=== PATIENT | male | born 1945 | race African-American/Black ===

== ENCOUNTER 2018-09-04 21:31 | Emergency (ER) | payer MEDICAID, MEDICARE ==
[~2018-09-04] VITALS: Ht 172.7 cm; Wt 181.8 kg
[2018-09-04] MEDS ORDERED: SODIUM CHLORIDE 0.9% 1,000 ML IV ONE (23:02)
[2018-09-04] MEDS ORDERED: VANCOMYCIN 1 G PREMIX 200 ML IV ONE (23:15)
[2018-09-04] MEDS ORDERED: PIPERACILLIN/TAZ 3.375G PREMIX 50 ML IV ONE (23:15)
[2018-09-04 23:34] LABS: BASOPHILS % 0.6 % (0.0-2.0); EOSINOPHILS % 2.3 % (0.0-5.0); HEMATOCRIT. 39.3 % (42.0-52.0); HEMOGLOBIN. 12.7 g/dL (14.0-18.0); LYMPHOCYTES % 22.4 % (20.0-50.0); MEAN CORPUSCULAR HEMOGLOBIN 26.6 pg (28.0-32.0); MEAN CORPUSCULAR VOLUME 82.3 fL (80.0-94.0); MONOCYTES % 7.6 % (2.0-8.0); NEUTROPHILS % 67.1 % (40.0-76.0); PLATELET 263 x1000/uL (130-400); RED BLOOD CELL COUNT 4.78 mill/uL (4.7-6.1); RED CELL DISTRIBUTION WIDTH 16.2 % (11.6-14.6)
[2018-09-04 23:40] LABS: CHLORIDE 102 mEq/L (98-107)
[2018-09-04 23:47] LABS: BETA HYDROXYBUTYRATE 0.1 mMol/L (0.0-0.3)
[2018-09-05] MEDS ORDERED: HYDROCODONE/ACETAMINOPHEN 10/325MG TABLET PO ONE (02:45)
[2018-09-05 05:38] VITALS: BP 163/78
== END 2018-09-05 05:45 | disposition home or self-care (01) ==
LOC: ER 21:31
DX: S81.802A Unspecified open wound, left lower leg, initial encounter (principal); X58.XXXA Exposure to other specified factors, initial encounter; Y93.89 Activity, other specified; Y92.89 Other specified places as the place of occurrence of the external cause; Y99.8 Other external cause status
CPT/HCPCS: 36415; 73590; 80053; 82010; 83605; 85025; 87040; 96365; 96366; 96367; 99284; J2543; J3370; J7030

== ENCOUNTER 2018-09-28 20:09 | Inpatient (IN) | payer MEDICARE, MEDICAID ==
[~2018-09-28] VITALS: Ht 175.3 cm; Wt 181.4 kg
[2018-09-28] MEDS ORDERED: PIPERACILLIN/TAZ 3.375G PREMIX 50 ML IV ONE (21:00)
[2018-09-28] MEDS ORDERED: VANCOMYCIN 1 G PREMIX 200 ML IV ONE (21:00)
[2018-09-28] MEDS ORDERED: SODIUM CHLORIDE 0.9% 1000ML BAG (SEPSIS BOLUS) IV ONE (21:00)
[2018-09-28] MEDS ORDERED: ONDANSETRON HCL 4MG/2ML INJ IV STA (21:21)
[2018-09-28] MEDS ORDERED: MORPHINE SULFATE 4 MG/ML CPJ (NOT FOR IM USE) IV STA (21:21)
[2018-09-28 21:32] LABS: BASOPHILS % 0.7 % (0.0-2.0); EOSINOPHILS % 2.4 % (0.0-5.0); HEMATOCRIT. 40.1 % (42.0-52.0); HEMOGLOBIN. 12.9 g/dL (14.0-18.0); LYMPHOCYTES % 22.8 % (20.0-50.0); MEAN CORPUSCULAR HEMOGLOBIN 26.7 pg (28.0-32.0); MEAN CORPUSCULAR VOLUME 82.9 fL (80.0-94.0); MEAN PLATELET VOLUME 9.2 fl (7.4-10.4); MONOCYTES % 9.1 % (2.0-8.0); PLATELET 266 x1000/uL (130-400); RED BLOOD CELL COUNT 4.84 mill/uL (4.7-6.1); RED CELL DISTRIBUTION WIDTH 16.5 % (11.6-14.6)
[2018-09-28 21:34] LABS: CHLORIDE 99 mEq/L (98-107)
[2018-09-28 21:38] LABS: INR 1.1; PARTIAL THROMBOPLASTIN TIME 32.1 sec (23.4-31.0); PROTHROMBIN TIME 11.1 sec (9.6-11.0)
[2018-09-28] MEDS ORDERED: IOHEXOL-350 100 ML BOTTLE ONE (23:15)
[2018-09-29 02:13] LABS: CLARITY URINE CLEAR (CLEAR); COLOR URINE YELLOW (YELLOW); KETONES URINE NEGATIVE (NEGATIVE); LEUKOCYTE ESTERASE URINE NEGATIVE (NEGATIVE); NITRITE URINE NEGATIVE (NEGATIVE); OCCULT BLOOD URINE NEGATIVE (NEGATIVE); PROTEIN URINE NEGATIVE (NEGATIVE); SPECIFIC GRAVITY URINE 1.033 (1.005-1.030); UROBILINOGEN URINE 0.2 E.U./dL (0.2-1.0)
[2018-09-29] MEDS ORDERED: ACETAMINOPHEN 325MG TABLET PO PRN (07:45)
[2018-09-29] MEDS ORDERED: DEXTROSE 50% WATER 50ML SYRINGE IV PRN (07:45)
[2018-09-29] MEDS ORDERED: ONDANSETRON HCL 4MG/2ML INJ IV PRN (07:45)
[2018-09-29] MEDS: BLOOD SUGAR DIAGNOSTIC STRIP TEST SCH ×4 (09:00→21:13)
[2018-09-29] MEDS: INSULIN LISPRO 100 UNITS/ML SUBCUT SCH ×4 (09:20→21:16)
[2018-09-29] MEDS ORDERED: MORPHINE SULFATE 2 MG/ML CPJ (NOT FOR IM USE) IV PRN (10:00)
[2018-09-29 10:40] VITALS: BP 115/54
[2018-09-29 11:00] VITALS: BP 115/54
[2018-09-29] MEDS ORDERED: INSULIN GLARGINE UD 100 UNITS/ML SYR SUBCUT SCH (11:00)
[2018-09-29 12:00] VITALS: BP_SYST 115; BP_SYST 127; BP_DIAS 54; BP_DIAS 56
[2018-09-29] MEDS ORDERED: VANCOMYCIN 2,000 MG in DEXT 5% WATER 500 ML IV NR (13:00)
[2018-09-29] MEDS: ENOXAPARIN 40MG/0.4ML SYR SUBCUT SCH ×2 (13:18→21:16)
[2018-09-29] MEDS: MORPHINE SULFATE 2 MG/ML CPJ (NOT FOR IM USE) IV PRN (14:34)
[2018-09-29 16:00] VITALS: BP 114/57
[2018-09-29] MEDS: HYDROCODONE/ACETAMINOPHEN 5/325MG TABLET PO PRN (16:44)
[2018-09-29] MEDS ORDERED: PIPERACILLIN/TAZ 3.375G PREMIX 50 ML IV SCH (19:00)
[2018-09-29 20:00] VITALS: BP 108/43
[2018-09-29] MEDS: INSULIN GLARGINE UD 100 UNITS/ML SYR SUBCUT SCH (23:11)
[2018-09-30] VITALS: BP 136/84
[2018-09-30] MEDS: PIPERACILLIN/TAZ 3.375G PREMIX 50 ML IV SCH ×4 (02:04→20:48)
[2018-09-30 04:00] VITALS: BP 131/73
[2018-09-30 07:29] LABS: BASOPHILS % 0.5 % (0.0-2.0); EOSINOPHILS % 3.7 % (0.0-5.0); HEMATOCRIT. 38.9 % (42.0-52.0); HEMOGLOBIN. 12.5 g/dL (14.0-18.0); LYMPHOCYTES % 24.1 % (20.0-50.0); MEAN CORPUSCULAR HEMOGLOBIN 26.4 pg (28.0-32.0); MEAN CORPUSCULAR VOLUME 82.5 fL (80.0-94.0); MEAN PLATELET VOLUME 9.3 fl (7.4-10.4); MONOCYTES % 9.7 % (2.0-8.0); PLATELET 256 x1000/uL (130-400); RED BLOOD CELL COUNT 4.72 mill/uL (4.7-6.1); RED CELL DISTRIBUTION WIDTH 16.6 % (11.6-14.6)
[2018-09-30 07:36] LABS: CHLORIDE 104 mEq/L (98-107)
[2018-09-30] MEDS: BLOOD SUGAR DIAGNOSTIC STRIP TEST SCH ×4 (07:45→20:48)
[2018-09-30] MEDS: INSULIN LISPRO 100 UNITS/ML SUBCUT SCH ×4 (07:46→21:36)
[2018-09-30 08:00] VITALS: BP 102/52
[2018-09-30] MEDS: VANCOMYCIN 2,000 MG in DEXT 5% WATER 500 ML IV SCH (08:52)
[2018-09-30] MEDS: ENOXAPARIN 40MG/0.4ML SYR SUBCUT SCH ×2 (08:52→21:35)
[2018-09-30] MEDS: INSULIN GLARGINE UD 100 UNITS/ML SYR SUBCUT SCH ×2 (09:40→21:35)
[2018-09-30 12:00] VITALS: BP 93/45
[2018-09-30 16:00] VITALS: BP 116/57
[2018-09-30] MEDS: HYDROCODONE/ACETAMINOPHEN 5/325MG TABLET PO PRN (18:03)
[2018-09-30 20:00] VITALS: BP 115/61
[2018-10-01] VITALS: BP 117/69
[2018-10-01] MEDS: PIPERACILLIN/TAZ 3.375G PREMIX 50 ML IV SCH ×4 (02:35→20:43)
[2018-10-01] MEDS: VANCOMYCIN 2,000 MG in DEXT 5% WATER 500 ML IV SCH (02:35)
[2018-10-01 04:00] VITALS: BP 138/68
[2018-10-01] MEDS: BLOOD SUGAR DIAGNOSTIC STRIP TEST SCH ×4 (06:25→21:14)
[2018-10-01 08:00] VITALS: BP 118/59
[2018-10-01] MEDS: INSULIN LISPRO 100 UNITS/ML SUBCUT SCH ×4 (09:02→21:00)
[2018-10-01] MEDS: ENOXAPARIN 40MG/0.4ML SYR SUBCUT SCH ×2 (09:04→20:45)
[2018-10-01] MEDS: MORPHINE SULFATE 2 MG/ML CPJ (NOT FOR IM USE) IV PRN ×3 (09:14→20:44)
[2018-10-01 12:00] VITALS: BP 120/59
[2018-10-01] MEDS: HYDROCODONE/ACETAMINOPHEN 5/325MG TABLET PO PRN (12:18)
[2018-10-01] MEDS: INSULIN GLARGINE UD 100 UNITS/ML SYR SUBCUT SCH ×2 (12:34→21:16)
[2018-10-01 16:00] VITALS: BP 130/60
[2018-10-01] MEDS: VANCOMYCIN 1250MG in DEXTROSE 5% WATER 250ML IV SCH (17:41)
[2018-10-01 20:00] VITALS: BP 109/71
[2018-10-02] VITALS: BP 132/57
[2018-10-02] MEDS: PIPERACILLIN/TAZ 3.375G PREMIX 50 ML IV SCH ×4 (01:11→21:26)
[2018-10-02 04:00] VITALS: BP 133/71
[2018-10-02] MEDS: VANCOMYCIN 1250MG in DEXTROSE 5% WATER 250ML IV SCH ×2 (05:56→17:43)
[2018-10-02] MEDS: BLOOD SUGAR DIAGNOSTIC STRIP TEST SCH ×4 (06:29→21:28)
[2018-10-02 08:00] VITALS: BP 127/72
[2018-10-02] MEDS: INSULIN LISPRO 100 UNITS/ML SUBCUT SCH ×4 (08:09→21:28)
[2018-10-02] MEDS: INSULIN GLARGINE UD 100 UNITS/ML SYR SUBCUT SCH ×2 (09:24→21:28)
[2018-10-02] MEDS: ENOXAPARIN 40MG/0.4ML SYR SUBCUT SCH ×2 (09:24→21:27)
[2018-10-02] MEDS: MORPHINE SULFATE 2 MG/ML CPJ (NOT FOR IM USE) IV PRN ×2 (09:25→17:43)
[2018-10-02 12:00] VITALS: BP 131/48
[2018-10-02 16:00] VITALS: BP 158/61
[2018-10-02 20:00] VITALS: BP 125/72
[2018-10-02] MEDS: AMMONIUM LACTATE 12% LOTION 240ML TOP SCH (21:29)
[2018-10-03] VITALS (7 sets, daily range): BP systolic 107–132; BP diastolic 54–77
[2018-10-03] MEDS: PIPERACILLIN/TAZ 3.375G PREMIX 50 ML IV SCH ×2 (02:14→08:03)
[2018-10-03] MEDS: VANCOMYCIN 1250MG in DEXTROSE 5% WATER 250ML IV SCH (06:06)
[2018-10-03] MEDS: BLOOD SUGAR DIAGNOSTIC STRIP TEST SCH ×2 (06:30→13:36)
[2018-10-03] MEDS: INSULIN LISPRO 100 UNITS/ML SUBCUT SCH ×2 (08:03→13:10)
[2018-10-03] MEDS: AMMONIUM LACTATE 12% LOTION 240ML TOP SCH (08:04)
[2018-10-03] MEDS: ENOXAPARIN 40MG/0.4ML SYR SUBCUT SCH (08:04)
[2018-10-03] MEDS: INSULIN GLARGINE UD 100 UNITS/ML SYR SUBCUT SCH (13:59)
== END 2018-10-03 18:00 | disposition home health service (06) | DRG 638 ==
LOC: ER 20:09 → 7WST 09-29 00:43 → ENRESERV 09-29 07:12
PROVIDERS: ADMIT Internal Medicine; ATTEND Internal Medicine
DX: E11.621 Type 2 diabetes mellitus with foot ulcer (principal); L03.115 Cellulitis of right lower limb; L03.116 Cellulitis of left lower limb; L97.429 Non-pressure chronic ulcer of left heel and midfoot with unspecified severity; E11.42 Type 2 diabetes mellitus with diabetic polyneuropathy; I89.0 Lymphedema, not elsewhere classified; E66.01 Morbid (severe) obesity due to excess calories; E11.65 Type 2 diabetes mellitus with hyperglycemia; D64.9 Anemia, unspecified; I87.2 Venous insufficiency (chronic) (peripheral); Z91.19 Patient's noncompliance with other medical treatment and regimen; Z71.3 Dietary counseling and surveillance
CPT/HCPCS: 36415; 71045; 72191; 73706; 80048; 80202; 82962; 83036; 83605; 83880; 84145; 84484; 93005; 93970; 96365; 96375; 97162; 97166; 99285; J1650; J1815; J2270; J2405; J2543; J3370; J7030; J7040; J7050; J7060; Q9967

== ENCOUNTER 2018-10-17 20:04 | Inpatient (IN) | payer MEDICARE, MEDICAID ==
[~2018-10-17] VITALS: Ht 172.7 cm; Wt 171.5 kg
[~2018-10-17 20:04] MED LIST: INSULIN GLARGINE UD 100 UNITS/ML SYR SUBCUT SCH
[2018-10-17] MEDS ORDERED: MORPHINE SULFATE 4 MG/ML CPJ (NOT FOR IM USE) IV STA (20:24)
[2018-10-17] MEDS ORDERED: KETOROLAC 30MG/ML VIAL IV STA (20:24)
[2018-10-17] MEDS ORDERED: SODIUM CHLORIDE 0.9% 1,000 ML IV ONE (20:24)
[2018-10-17] MEDS ORDERED: ONDANSETRON HCL 4MG/2ML INJ IV STA (20:24)
[2018-10-17] MEDS ORDERED: VANCOMYCIN 1 G PREMIX 200 ML IV SCH ×2 (20:30→23:15)
[2018-10-17] MEDS ORDERED: PIPERACILLIN SODIUM/TAZOBACTAM 4.5 G in DEXT 5% WATER 100 ML IV SCH (20:30)
[2018-10-17 20:58] LABS: BASOPHILS % 0.4 % (0.0-2.0); EOSINOPHILS % 2.5 % (0.0-5.0); HEMATOCRIT. 39.3 % (42.0-52.0); HEMOGLOBIN. 12.9 g/dL (14.0-18.0); LYMPHOCYTES % 10.3 % (20.0-50.0); MEAN CORPUSCULAR HEMOGLOBIN 27.2 pg (28.0-32.0); MEAN CORPUSCULAR VOLUME 82.9 fL (80.0-94.0); MEAN PLATELET VOLUME 9.1 fl (7.4-10.4); MONOCYTES % 6.9 % (2.0-8.0); NEUTROPHILS % 79.9 % (40.0-76.0); PLATELET 292 x1000/uL (130-400); RED BLOOD CELL COUNT 4.74 mill/uL (4.7-6.1); RED CELL DISTRIBUTION WIDTH 16.4 % (11.6-14.6)
[2018-10-17 21:01] LABS: CHLORIDE 100 mEq/L (98-107)
[2018-10-17 21:03] LABS: INR 1.1; PROTHROMBIN TIME 11.7 sec (9.6-11.0)
[2018-10-17 21:05] LABS: ETHANOL BLOOD < 10 mg/dL
[2018-10-17] MEDS ORDERED: ZOLPIDEM TARTRATE 5MG TABLET PO PRN (23:15)
[2018-10-17] MEDS ORDERED: MORPHINE SULFATE 2 MG/ML CPJ (NOT FOR IM USE) IV PRN (23:15)
[2018-10-17] MEDS ORDERED: DEXTROSE 50% WATER 50ML SYRINGE IV PRN (23:15)
[2018-10-17] MEDS ORDERED: PIPERACILLIN/TAZ 3.375G PREMIX 50 ML IV SCH (23:15)
[2018-10-17] MEDS ORDERED: NITROGLYCERIN 0.4MG TABLET SL SL PRN (23:15)
[2018-10-17] MEDS ORDERED: CLONIDINE 0.1MG TABLET PO PRN (23:15)
[2018-10-17] MEDS ORDERED: IPRATROPIUM/ALBUTEROL 0.5-3(2.5)MG/3ML NEB INH PRN (23:15)
[2018-10-17] MEDS ORDERED: KETOROLAC 15MG/ML VIAL IV PRN (23:15)
[2018-10-17] MEDS ORDERED: MAGNESIUM/ALUMINUM HYDROXIDE/SIMETHICONE 30ML UDC PO PRN (23:15)
[2018-10-17] MEDS ORDERED: DIPHENHYDRAMINE 50MG/ML VIAL IV PRN (23:15)
[2018-10-17] MEDS ORDERED: TRAMADOL 50MG TABLET PO PRN (23:15)
[2018-10-17] MEDS ORDERED: ONDANSETRON HCL 4MG/2ML INJ IV PRN (23:15)
[2018-10-17] MEDS ORDERED: GUAIFENESIN 200MG/10ML SUGAR FREE UDC PO PRN (23:15)
[2018-10-17] MEDS ORDERED: ACETAMINOPHEN 325MG TABLET PO PRN (23:15)
[2018-10-17] MEDS ORDERED: DOCUSATE SODIUM 100MG CAPSULE PO PRN (23:15)
[2018-10-18] VITALS (7 sets, daily range): BP systolic 102–134; BP diastolic 51–80
[2018-10-18] MEDS: BLOOD SUGAR DIAGNOSTIC STRIP TEST SCH ×4 (06:51→20:17)
[2018-10-18] MEDS: VANCOMYCIN 1500MG in DEXTROSE 5% WATER 250ML IV SCH ×2 (06:51→23:57)
[2018-10-18] MEDS: ZINC SULFATE 220 MG ( 50 ) CAPSULE PO SCH (09:46)
[2018-10-18] MEDS: FAMOTIDINE 20MG TABLET PO SCH ×2 (09:46→20:16)
[2018-10-18] MEDS: ASCORBIC ACID 500 MG TABLET PO SCH ×2 (09:46→20:16)
[2018-10-18] MEDS: ENOXAPARIN 40MG/0.4ML SYR SUBCUT SCH ×2 (09:47→20:16)
[2018-10-18] MEDS: PIPERACILLIN/TAZ 3.375G PREMIX 50 ML IV SCH ×3 (09:48→21:00)
[2018-10-18] MEDS: INSULIN LISPRO 100 UNITS/ML SUBCUT SCH ×4 (09:52→20:17)
[2018-10-18] MEDS: INSULIN GLARGINE UD 100 UNITS/ML SYR SUBCUT SCH (09:53)
[2018-10-18] MEDS: SODIUM HYPOCHLORITE 0.125% 473ML SOLUTION TOP SCH (10:57)
[2018-10-18] MEDS: NYSTATIN POWDER 15GM TOP SCH ×3 (13:00→16:48)
[2018-10-19] VITALS: BP 113/65
[2018-10-19] MEDS: PIPERACILLIN/TAZ 3.375G PREMIX 50 ML IV SCH ×2 (03:32→10:06)
[2018-10-19 04:00] VITALS: BP 102/50
[2018-10-19] MEDS: BLOOD SUGAR DIAGNOSTIC STRIP TEST SCH ×2 (06:29→11:46)
[2018-10-19] MEDS: INSULIN LISPRO 100 UNITS/ML SUBCUT SCH ×2 (06:30→12:26)
[2018-10-19 08:00] VITALS: BP 109/54
[2018-10-19] MEDS: ZINC SULFATE 220 MG ( 50 ) CAPSULE PO SCH (10:06)
[2018-10-19] MEDS: FAMOTIDINE 20MG TABLET PO SCH (10:06)
[2018-10-19] MEDS: ENOXAPARIN 40MG/0.4ML SYR SUBCUT SCH (10:06)
[2018-10-19] MEDS: ASCORBIC ACID 500 MG TABLET PO SCH (10:06)
[2018-10-19] MEDS: SODIUM HYPOCHLORITE 0.125% 473ML SOLUTION TOP SCH (10:07)
[2018-10-19] MEDS: NYSTATIN POWDER 15GM TOP SCH ×2 (10:07→12:26)
[2018-10-19] MEDS: INSULIN GLARGINE UD 100 UNITS/ML SYR SUBCUT SCH (10:09)
[2018-10-19 12:00] VITALS: BP 106/53
[2018-10-19 14:39] VITALS: BP 106/53
== END 2018-10-19 15:25 | disposition home health service (06) | DRG 603 ==
LOC: ER 20:04 → 5WST 22:50 → EDBEDREQTM 22:53 → EDBEDREQ 22:53 → ENRESERV 23:00
PROVIDERS: ADMIT Internal Medicine; ATTEND Internal Medicine
DX: L03.119 Cellulitis of unspecified part of limb (principal); E87.1 Hypo-osmolality and hyponatremia; L97.929 Non-pressure chronic ulcer of unspecified part of left lower leg with unspecified severity; E11.42 Type 2 diabetes mellitus with diabetic polyneuropathy; E11.65 Type 2 diabetes mellitus with hyperglycemia; E66.01 Morbid (severe) obesity due to excess calories; I83.029 Varicose veins of left lower extremity with ulcer of unspecified site; E11.621 Type 2 diabetes mellitus with foot ulcer; D63.8 Anemia in other chronic diseases classified elsewhere; L03.116 Cellulitis of left lower limb; R74.0 Nonspecific elevation of levels of transaminase and lactic acid dehydrogenase [LDH]; Z91.19 Patient's noncompliance with other medical treatment and regimen; L89.90 Pressure ulcer of unspecified site, unspecified stage; Z91.14 Patient's other noncompliance with medication regimen; Z91.11 Patient's noncompliance with dietary regimen; F12.90 Cannabis use, unspecified, uncomplicated
CPT/HCPCS: 36415; 71045; 74176; 80061; 80320; 82962; 83036; 83605; 83880; 84134; 84484; 87070; 87075; 87077; 87186; 93005; 93970; 96365; 96375; 99285; J1650; J1815; J1885; J2270; J2405; J2543; J3370; J7030; J7050; J7060; G0480

== ENCOUNTER 2018-10-31 20:07 | Emergency (ER) | payer MEDICARE, MEDICAID ==
[~2018-10-31] VITALS: Ht 175.3 cm; Wt 144.0 kg
[2018-10-31] MEDS ORDERED: SODIUM CHLORIDE 0.9% 1,000 ML IV ONE (22:18)
[2018-10-31] MEDS ORDERED: MORPHINE SULFATE 4 MG/ML CPJ (NOT FOR IM USE) IV STA (22:18)
[2018-10-31 23:04] LABS: BASOPHILS % 0.5 % (0.0-2.0); EOSINOPHILS % 5.7 % (0.0-5.0); HEMATOCRIT. 38.9 % (42.0-52.0); HEMOGLOBIN. 12.9 g/dL (14.0-18.0); LYMPHOCYTES % 18.2 % (20.0-50.0); MEAN CORPUSCULAR HEMOGLOBIN 27.8 pg (28.0-32.0); MEAN CORPUSCULAR VOLUME 83.6 fL (80.0-94.0); MEAN PLATELET VOLUME 8.3 fl (7.4-10.4); MONOCYTES % 7.9 % (2.0-8.0); NEUTROPHILS % 67.7 % (40.0-76.0); PLATELET 297 x1000/uL (130-400); RED BLOOD CELL COUNT 4.65 mill/uL (4.7-6.1); RED CELL DISTRIBUTION WIDTH 16.5 % (11.6-14.6)
[2018-10-31 23:07] LABS: INR 1.1; PROTHROMBIN TIME 11.4 sec (9.6-11.0)
[2018-10-31 23:08] LABS: CHLORIDE 103 mEq/L (98-107)
[2018-11-01 04:00] LABS: CLARITY URINE CLEAR (CLEAR); COLOR URINE YELLOW (YELLOW); KETONES URINE NEGATIVE (NEGATIVE); LEUKOCYTE ESTERASE URINE NEGATIVE (NEGATIVE); NITRITE URINE NEGATIVE (NEGATIVE); OCCULT BLOOD URINE NEGATIVE (NEGATIVE); PH URINE 5.5 (4.5-8.0); PROTEIN URINE NEGATIVE (NEGATIVE); UROBILINOGEN URINE 0.2 E.U./dL (0.2-1.0)
[2018-11-01] MEDS ORDERED: MORPHINE SULFATE 4 MG/ML CPJ (NOT FOR IM USE) IV ONE (08:44)
[2018-11-01] MEDS ORDERED: MORPHINE SULFATE 10 MG/ML CPJ IM ONE (08:45)
[2018-11-01] MEDS ORDERED: ONDANSETRON 4MG ODT PO ONE (19:45)
[2018-11-01 19:48] VITALS: BP 154/79
== END 2018-11-01 19:52 | disposition home or self-care (01) ==
LOC: ER 20:07
DX: R10.9 Unspecified abdominal pain (principal); I83.11 Varicose veins of right lower extremity with inflammation; E11.9 Type 2 diabetes mellitus without complications; I10 Essential (primary) hypertension; F12.10 Cannabis abuse, uncomplicated
CPT/HCPCS: 36415; 76770; 80053; 81003; 83690; 83880; 84484; 85025; 85610; 93971; 96374; 96375; 99284; J2270; J7030; Q0162

== ENCOUNTER 2018-11-05 00:20 | Emergency (ER) | payer MEDICAID, MEDICARE ==
[~2018-11-05] VITALS: Ht 167.6 cm; Wt 174.0 kg
[2018-11-05] MEDS ORDERED: MORPHINE SULFATE 4 MG/ML CPJ (NOT FOR IM USE) IV ONE ×2 (01:30→03:30)
[2018-11-05] MEDS ORDERED: ONDANSETRON HCL 4MG/2ML INJ IV ONE (01:30)
[2018-11-05] MEDS ORDERED: ONDANSETRON 4MG ODT PO ONE (03:30)
[2018-11-05 07:27] VITALS: BP 200/93
== END 2018-11-05 07:30 | disposition home or self-care (01) ==
LOC: ER 00:20
DX: E11.622 Type 2 diabetes mellitus with other skin ulcer (principal); I10 Essential (primary) hypertension; F12.90 Cannabis use, unspecified, uncomplicated
CPT/HCPCS: 96374; 99283; J2270; Q0162; Z7610

== ENCOUNTER 2018-11-06 20:39 | Inpatient (IN) | payer MEDICARE, MEDICAID ==
[~2018-11-06] VITALS: Ht 175.3 cm; Wt 173.7 kg
[2018-11-06] MEDS ORDERED: VANCOMYCIN 1 G PREMIX 200 ML IV ONE (21:15)
[2018-11-06] MEDS ORDERED: SODIUM CHLORIDE 0.9% 1000ML BAG (SEPSIS BOLUS) IV ONE (21:15)
[2018-11-06] MEDS ORDERED: PIPERACILLIN/TAZ 3.375G PREMIX 50 ML IV ONE (21:15)
[2018-11-06 21:44] LABS: BASOPHILS % 0.6 % (0.0-2.0); EOSINOPHILS % 7.3 % (0.0-5.0); HEMATOCRIT. 35.8 % (42.0-52.0); HEMOGLOBIN. 11.9 g/dL (14.0-18.0); LYMPHOCYTES % 21.1 % (20.0-50.0); MEAN CORPUSCULAR HEMOGLOBIN 27.5 pg (28.0-32.0); MEAN CORPUSCULAR VOLUME 82.9 fL (80.0-94.0); MEAN PLATELET VOLUME 8.2 fl (7.4-10.4); MONOCYTES % 7.4 % (2.0-8.0); NEUTROPHILS % 63.6 % (40.0-76.0); PLATELET 298 x1000/uL (130-400); RED BLOOD CELL COUNT 4.31 mill/uL (4.7-6.1); RED CELL DISTRIBUTION WIDTH 16.6 % (11.6-14.6)
[2018-11-06 21:52] LABS: CHLORIDE 106 mEq/L (98-107)
[2018-11-06 21:53] LABS: INR 1.1; PARTIAL THROMBOPLASTIN TIME 29.9 sec (23.4-31.0); PROTHROMBIN TIME 11.4 sec (9.6-11.0)
[2018-11-07 04:00] VITALS: BP 139/64
[2018-11-07] MEDS ORDERED: DEXTROSE 50% WATER 50ML SYRINGE IV PRN (04:45)
[2018-11-07] MEDS ORDERED: METF100092 PO (04:46)
[2018-11-07] MEDS ORDERED: CLIN300C11 PO (04:46)
[2018-11-07] MEDS ORDERED: GLYB5TAB7 PO (04:46)
[2018-11-07] MEDS ORDERED: ZINC220T PO (04:46)
[2018-11-07] MEDS ORDERED: ASCO500C18 PO (04:46)
[2018-11-07 04:48] VITALS: BP 139/64
[2018-11-07] MEDS: MORPHINE SULFATE 2 MG/ML CPJ (NOT FOR IM USE) IV PRN ×3 (05:06→23:30)
[2018-11-07] MEDS: BLOOD SUGAR DIAGNOSTIC STRIP TEST SCH ×4 (07:21→21:04)
[2018-11-07] MEDS: PIPERACILLIN/TAZ 3.375G PREMIX 50 ML IV SCH ×4 (07:21→23:30)
[2018-11-07] MEDS: INSULIN LISPRO 100 UNITS/ML SUBCUT SCH ×4 (07:40→21:00)
[2018-11-07 08:00] VITALS: BP 118/57
[2018-11-07] MEDS: VANCOMYCIN 1250MG in DEXTROSE 5% WATER 250ML IV SCH ×2 (08:30→20:06)
[2018-11-07] MEDS: ENOXAPARIN 40MG/0.4ML SYR SUBCUT SCH ×2 (09:07→21:04)
[2018-11-07 12:00] VITALS: BP 138/70
[2018-11-07 16:00] VITALS: BP 114/57
[2018-11-07] MEDS: NYSTATIN POWDER 15GM TOP SCH (18:14)
[2018-11-07 20:00] VITALS: BP 104/54
[2018-11-08] VITALS (8 sets, daily range): BP systolic 106–133; BP diastolic 51–70
[2018-11-08] MEDS ORDERED: CEFTRIAXONE 2 G PREMIX 50 ML IV SCH (01:00)
[2018-11-08] MEDS ORDERED: CEFTRIAXONE 2 G in DEXTROSE 5% WATER 50 ML IV SCH (04:00)
[2018-11-08] MEDS: BLOOD SUGAR DIAGNOSTIC STRIP TEST SCH ×3 (06:29→16:43)
[2018-11-08] MEDS: INSULIN LISPRO 100 UNITS/ML SUBCUT SCH ×3 (06:30→17:07)
[2018-11-08 07:02] LABS: CHLORIDE 106 mEq/L (98-107)
[2018-11-08] MEDS: VANCOMYCIN 1250MG in DEXTROSE 5% WATER 250ML IV SCH (08:51)
[2018-11-08] MEDS: MORPHINE SULFATE 2 MG/ML CPJ (NOT FOR IM USE) IV PRN ×2 (09:30→15:37)
[2018-11-08] MEDS: NYSTATIN POWDER 15GM TOP SCH ×3 (09:31→17:51)
[2018-11-08] MEDS: ENOXAPARIN 40MG/0.4ML SYR SUBCUT SCH (09:31)
[2018-11-08 09:40] LABS: BASOPHILS % 0.6 % (0.0-2.0); EOSINOPHILS % 9.2 % (0.0-5.0); HEMATOCRIT. 37.9 % (42.0-52.0); HEMOGLOBIN. 12.1 g/dL (14.0-18.0); LYMPHOCYTES % 22.6 % (20.0-50.0); MEAN CORPUSCULAR HEMOGLOBIN 26.5 pg (28.0-32.0); MEAN CORPUSCULAR VOLUME 83.3 fL (80.0-94.0); MEAN PLATELET VOLUME 8.6 fl (7.4-10.4); MONOCYTES % 7.1 % (2.0-8.0); NEUTROPHILS % 60.5 % (40.0-76.0); PLATELET 302 x1000/uL (130-400); RED BLOOD CELL COUNT 4.55 mill/uL (4.7-6.1); RED CELL DISTRIBUTION WIDTH 16.8 % (11.6-14.6)
[2018-11-08] MEDS ORDERED: VANCOMYCIN 1500MG in DEXTROSE 5% WATER 250ML IV SCH (18:00)
== END 2018-11-08 20:08 | disposition home health service (06) | DRG 623 ==
LOC: ER 20:39 → 8WST 23:25 → EDBEDREQ 23:29 → EDBEDREQTM 23:29 → ENRESERV 11-07 03:13 → 6EST 11-08 08:30
PROVIDERS: ADMIT Internal Medicine; ATTEND Internal Medicine
PROC: 0JBR0ZZ Excision of Left Foot Subcutaneous Tissue and Fascia, Open Approach (ICD-10-PCS; principal; 2018-11-08)
PROC: 0KBW0ZZ Excision of Left Foot Muscle, Open Approach (ICD-10-PCS; 2018-11-08)
DX: E11.621 Type 2 diabetes mellitus with foot ulcer (principal); L03.116 Cellulitis of left lower limb; L97.929 Non-pressure chronic ulcer of unspecified part of left lower leg with unspecified severity; E44.1 Mild protein-calorie malnutrition; L97.409 Non-pressure chronic ulcer of unspecified heel and midfoot with unspecified severity; Z68.43 Body mass index [BMI] 50.0-59.9, adult; I83.029 Varicose veins of left lower extremity with ulcer of unspecified site; D64.9 Anemia, unspecified; L89.320 Pressure ulcer of left buttock, unstageable; L89.310 Pressure ulcer of right buttock, unstageable; L89.150 Pressure ulcer of sacral region, unstageable; E11.42 Type 2 diabetes mellitus with diabetic polyneuropathy; E11.649 Type 2 diabetes mellitus with hypoglycemia without coma; F12.90 Cannabis use, unspecified, uncomplicated; E66.01 Morbid (severe) obesity due to excess calories; I10 Essential (primary) hypertension; I87.8 Other specified disorders of veins; L89.899 Pressure ulcer of other site, unspecified stage; Z91.19 Patient's noncompliance with other medical treatment and regimen
CPT/HCPCS: 36415; 71045; 80048; 80202; 82962; 83605; 83880; 84134; 84145; 84484; 93005; 93306; 96365; 97162; 99291; J0696; J1650; J2270; J2543; J3370; J7030; J7040; J7060

== ENCOUNTER 2019-06-02 15:40 | Inpatient (IN) | payer MEDICAID, MEDICARE ==
[~2019-06-02] VITALS: Ht 153.9 cm; Wt 176.0 kg
[~2019-06-02 15:40] MED LIST changes: +ASCO500C18 PO; +GLYB5TAB7 PO; -INSULIN GLARGINE UD 100 UNITS/ML SYR SUBCUT SCH; +METF100092 PO; +ZINC220T4 PO
[2019-06-02] MEDS ORDERED: PIPERACILLIN/TAZ 3.375G PREMIX 50 ML IV ONE (16:45)
[2019-06-02] MEDS ORDERED: VANCOMYCIN 1 G PREMIX 200 ML IV ONE (16:45)
[2019-06-02 17:14] LABS: BASOPHILS % 0.7 % (0.0-2.0); EOSINOPHILS % 2.4 % (0.0-5.0); HEMATOCRIT. 41.9 % (42.0-52.0); HEMOGLOBIN. 13.3 g/dL (14.0-18.0); LYMPHOCYTES % 27.4 % (20.0-50.0); MEAN CORPUSCULAR HEMOGLOBIN 27.5 pg (28.0-32.0); MEAN CORPUSCULAR VOLUME 86.6 fL (80.0-94.0); MEAN PLATELET VOLUME 9.1 fl (7.4-10.4); MONOCYTES % 8.2 % (2.0-8.0); NEUTROPHILS % 61.3 % (40.0-76.0); PLATELET 240 x1000/uL (130-400); RED BLOOD CELL COUNT 4.84 mill/uL (4.7-6.1); RED CELL DISTRIBUTION WIDTH 14.5 % (11.6-14.6)
[2019-06-02 17:21] LABS: CHLORIDE 98 mEq/L (98-107)
[2019-06-02] MEDS ORDERED: INSULIN REGULAR (HUMULIN R) 300UNITS/3ML SUBCUT ONE (17:45)
[2019-06-02] MEDS ORDERED: DEXTROSE 50% WATER 50ML SYRINGE IV PRN (18:15)
[2019-06-02] MEDS ORDERED: DOCUSATE SODIUM 100MG CAPSULE PO PRN (18:15)
[2019-06-02] MEDS ORDERED: CLONIDINE 0.1MG TABLET PO PRN (18:15)
[2019-06-02] MEDS ORDERED: MAGNESIUM/ALUMINUM HYDROXIDE/SIMETHICONE 30ML UDC PO PRN (18:15)
[2019-06-02] MEDS ORDERED: IPRATROPIUM/ALBUTEROL 0.5-3(2.5)MG/3ML NEB NEB PRN (18:15)
[2019-06-02] MEDS ORDERED: PIPERACILLIN/TAZ 3.375G PREMIX 50 ML IV SCH (18:15)
[2019-06-02] MEDS ORDERED: NITROGLYCERIN 0.4MG TABLET SL SL PRN (18:15)
[2019-06-02] MEDS ORDERED: ONDANSETRON HCL 4MG/2ML INJ IV PRN (18:15)
[2019-06-02] MEDS ORDERED: GUAIFENESIN 200MG/10ML SUGAR FREE UDC PO PRN (18:15)
[2019-06-02] MEDS ORDERED: ACETAMINOPHEN 325MG TABLET PO PRN (18:15)
[2019-06-02] MEDS ORDERED: INSULIN LISPRO 100 UNITS/ML SUBCUT SCH (18:20)
[2019-06-02 19:32] LABS: T4 FREE 1.14 ng/dL (0.76-1.46)
[2019-06-02 19:44] LABS: FOLIC ACID (FOLATE) SERUM 16.7 ng/mL (>5.38)
[2019-06-02] MEDS ORDERED: ZOLPIDEM TARTRATE 5MG TABLET PO PRN (21:00)
[2019-06-02 23:00] VITALS: BP 120/58
[2019-06-03] VITALS: BP 114/70
[2019-06-03] MEDS ORDERED: INSULIN GLARGINE UD 100 UNITS/ML SYR SUBCUT SCH
[2019-06-03] MEDS: PIPERACILLIN/TAZOBACTAM 3.375 G in DEXT 5% WATER 100 ML IV SCH ×3 (01:39→18:00)
[2019-06-03 02:41] LABS: CREATINE KINASE < 7 IU/L (39-308); CREATINE KINASE MB FRACTION < 1.0 ng/mL (0.5-3.6)
[2019-06-03 04:00] VITALS: BP 124/54
[2019-06-03] MEDS ORDERED: VANCOMYCIN 1250MG in DEXTROSE 5% WATER 250ML IV SCH ×2 (06:00→23:00)
[2019-06-03] MEDS: BLOOD SUGAR DIAGNOSTIC STRIP TEST SCH ×4 (06:43→21:27)
[2019-06-03] MEDS: TRAMADOL 50MG TABLET PO PRN ×2 (06:56→22:18)
[2019-06-03 07:45] LABS: CREATINE KINASE 117 IU/L (39-308)
[2019-06-03 07:46] LABS: CREATINE KINASE MB FRACTION 1.6 ng/mL (0.5-3.6)
[2019-06-03 08:00] VITALS: BP 102/49
[2019-06-03] MEDS: ZINC SULFATE 220 MG ( 50 ) CAPSULE PO SCH (08:43)
[2019-06-03] MEDS: ASCORBIC ACID 500 MG TABLET PO SCH ×2 (08:43→20:21)
[2019-06-03] MEDS: ASPIRIN 325MG EC TABLET PO SCH (08:43)
[2019-06-03] MEDS: FAMOTIDINE 20MG TABLET PO SCH ×2 (08:44→20:21)
[2019-06-03] MEDS: ENOXAPARIN 40MG/0.4ML SYR SUBCUT SCH ×2 (08:44→21:27)
[2019-06-03] MEDS: INSULIN LISPRO 100 UNITS/ML SUBCUT SCH ×7 (08:46→21:34)
[2019-06-03] MEDS: KETOROLAC 15MG/ML VIAL IV PRN (11:00)
[2019-06-03 12:00] VITALS: BP 109/56
[2019-06-03 16:00] VITALS: BP 117/56
[2019-06-03 20:00] VITALS: BP 119/72
[2019-06-03] MEDS: INSULIN GLARGINE UD 100 UNITS/ML SYR SUBCUT SCH (23:30)
[2019-06-04] VITALS: BP 125/63
[2019-06-04] MEDS: PIPERACILLIN/TAZOBACTAM 3.375 G in DEXT 5% WATER 100 ML IV SCH ×4 (03:15→18:02)
[2019-06-04] MEDS: NYSTATIN POWDER 15GM TOP SCH ×3 (03:17→20:09)
[2019-06-04 04:00] VITALS: BP 152/76
[2019-06-04] MEDS: BLOOD SUGAR DIAGNOSTIC STRIP TEST SCH ×4 (07:11→20:09)
[2019-06-04 08:00] VITALS: BP 110/71
[2019-06-04] MEDS: ZINC SULFATE 220 MG ( 50 ) CAPSULE PO SCH (08:33)
[2019-06-04] MEDS: FAMOTIDINE 20MG TABLET PO SCH ×2 (08:33→20:08)
[2019-06-04] MEDS: ENOXAPARIN 40MG/0.4ML SYR SUBCUT SCH ×2 (08:33→20:09)
[2019-06-04] MEDS: ASPIRIN 325MG EC TABLET PO SCH (08:33)
[2019-06-04] MEDS: ASCORBIC ACID 500 MG TABLET PO SCH ×2 (08:33→20:08)
[2019-06-04] MEDS: INSULIN LISPRO 100 UNITS/ML SUBCUT SCH ×7 (08:35→20:51)
[2019-06-04] MEDS: KETOROLAC 15MG/ML VIAL IV PRN (08:54)
[2019-06-04 12:00] VITALS: BP 131/89
[2019-06-04 12:30] LABS: CHLORIDE 102 mEq/L (98-107)
[2019-06-04] MEDS: VANCOMYCIN 1250MG in DEXTROSE 5% WATER 250ML IV SCH ×2 (15:00→22:36)
[2019-06-04 16:00] VITALS: BP 108/75
[2019-06-04 20:00] VITALS: BP 153/68
[2019-06-04] MEDS: INSULIN GLARGINE UD 100 UNITS/ML SYR SUBCUT SCH (20:50)
[2019-06-05] VITALS: BP 127/71
[2019-06-05] MEDS: PIPERACILLIN/TAZOBACTAM 3.375 G in DEXT 5% WATER 100 ML IV SCH ×3 (01:24→17:03)
[2019-06-05 04:00] VITALS: BP 110/63
[2019-06-05] MEDS: KETOROLAC 15MG/ML VIAL IV PRN (04:44)
[2019-06-05] MEDS: BLOOD SUGAR DIAGNOSTIC STRIP TEST SCH ×4 (07:27→21:33)
[2019-06-05 08:00] VITALS: BP 115/61
[2019-06-05] MEDS: FAMOTIDINE 20MG TABLET PO SCH ×2 (08:25→21:12)
[2019-06-05] MEDS: ZINC SULFATE 220 MG ( 50 ) CAPSULE PO SCH (08:25)
[2019-06-05] MEDS: ASPIRIN 325MG EC TABLET PO SCH (08:25)
[2019-06-05] MEDS: VANCOMYCIN 1250MG in DEXTROSE 5% WATER 250ML IV SCH ×2 (08:25→21:12)
[2019-06-05] MEDS: ASCORBIC ACID 500 MG TABLET PO SCH ×2 (08:26→21:12)
[2019-06-05] MEDS: ENOXAPARIN 40MG/0.4ML SYR SUBCUT SCH ×2 (08:26→21:13)
[2019-06-05] MEDS: NYSTATIN POWDER 15GM TOP SCH (08:28)
[2019-06-05] MEDS: INSULIN LISPRO 100 UNITS/ML SUBCUT SCH ×7 (08:47→21:33)
[2019-06-05 12:00] VITALS: BP 129/57
[2019-06-05 16:00] VITALS: BP 130/60
[2019-06-05 20:00] VITALS: BP 91/52
[2019-06-05] MEDS: INSULIN GLARGINE UD 100 UNITS/ML SYR SUBCUT SCH (22:20)
[2019-06-06] VITALS: BP 115/58
[2019-06-06] MEDS: PIPERACILLIN/TAZOBACTAM 3.375 G in DEXT 5% WATER 100 ML IV SCH (02:15)
[2019-06-06 04:00] VITALS: BP 110/49
[2019-06-06] MEDS: KETOROLAC 15MG/ML VIAL IV PRN (04:02)
[2019-06-06] MEDS: NYSTATIN POWDER 15GM TOP SCH ×2 (04:08→09:55)
[2019-06-06] MEDS: INSULIN LISPRO 100 UNITS/ML SUBCUT SCH ×2 (06:47→06:49)
[2019-06-06] MEDS: BLOOD SUGAR DIAGNOSTIC STRIP TEST SCH (06:54)
[2019-06-06 08:00] VITALS: BP 120/53
[2019-06-06] MEDS: ASPIRIN 325MG EC TABLET PO SCH (09:16)
[2019-06-06] MEDS: ZINC SULFATE 220 MG ( 50 ) CAPSULE PO SCH (09:16)
[2019-06-06] MEDS: FAMOTIDINE 20MG TABLET PO SCH (09:16)
[2019-06-06] MEDS: VANCOMYCIN 1250MG in DEXTROSE 5% WATER 250ML IV SCH (09:16)
[2019-06-06] MEDS: ASCORBIC ACID 500 MG TABLET PO SCH (09:16)
[2019-06-06] MEDS: ENOXAPARIN 40MG/0.4ML SYR SUBCUT SCH (09:19)
[2019-06-06 10:06] VITALS: BP 120/53
[2019-06-06] MEDS ORDERED: LEVOFLOXACIN 250MG TABLET PO SCH (11:00)
[2019-06-06 12:00] VITALS: BP 129/67
== END 2019-06-06 12:02 | DRG 854 ==
LOC: ER 15:40 → EDBEDREQSVC 18:07 → EDBEDREQ 18:07 → SUPCPDRO 18:11 → ENRESERV 21:19 → 6EST 23:36
PROVIDERS: ADMIT Internal Medicine; ATTEND Internal Medicine
PROC: 0JBR0ZZ Excision of Left Foot Subcutaneous Tissue and Fascia, Open Approach (ICD-10-PCS; principal; 2019-06-05)
PROC: 0JBP0ZZ Excision of Left Lower Leg Subcutaneous Tissue and Fascia, Open Approach (ICD-10-PCS; 2019-06-05)
PROC: 0JBQ0ZZ Excision of Right Foot Subcutaneous Tissue and Fascia, Open Approach (ICD-10-PCS; 2019-06-05)
PROC: 0HDNXZZ Extraction of Left Foot Skin, External Approach (ICD-10-PCS; 2019-06-05)
PROC: 0HDMXZZ Extraction of Right Foot Skin, External Approach (ICD-10-PCS; 2019-06-05)
DX: A41.9 Sepsis, unspecified organism (principal); E87.1 Hypo-osmolality and hyponatremia; Z68.45 Body mass index [BMI] 70 or greater, adult; E87.2 Acidosis; L03.115 Cellulitis of right lower limb; L03.116 Cellulitis of left lower limb; L97.419 Non-pressure chronic ulcer of right heel and midfoot with unspecified severity; L97.929 Non-pressure chronic ulcer of unspecified part of left lower leg with unspecified severity; E11.65 Type 2 diabetes mellitus with hyperglycemia; E66.9 Obesity, unspecified; I87.8 Other specified disorders of veins; D63.8 Anemia in other chronic diseases classified elsewhere; E66.01 Morbid (severe) obesity due to excess calories; E11.42 Type 2 diabetes mellitus with diabetic polyneuropathy; E11.621 Type 2 diabetes mellitus with foot ulcer; R26.89 Other abnormalities of gait and mobility; E11.622 Type 2 diabetes mellitus with other skin ulcer; I83.029 Varicose veins of left lower extremity with ulcer of unspecified site; Z91.19 Patient's noncompliance with other medical treatment and regimen; Z79.899 Other long term (current) drug therapy
CPT/HCPCS: 36415; 71045; 80048; 80053; 80061; 80202; 82550; 82553; 82607; 82746; 82962; 83036; 83540; 83550; 83605; 84439; 84443; 84484; 85025; 87070; 87077; 87186; 93005; 93306; 93970; 97162; 97165; 99285; J1650; J1815; J1885; J2543; J3370; J7060

== ENCOUNTER 2019-10-11 13:13 | Emergency (ER) | payer MEDICARE ==
[~2019-10-11] VITALS: Ht 182.9 cm; Wt 181.8 kg
[2019-10-11] MEDS ORDERED: INSU100V3 SUBCUT (13:22)
[2019-10-11] MEDS ORDERED: LIDOCAINE HCL 1% 20ML VIAL (Pyxis) INJ ONE (14:29)
[2019-10-11] MEDS ORDERED: MEROPENEM 1,000 MG in SODIUM CHLORIDE 0.9% 100 ML IV SCH (14:30)
[2019-10-11 14:34] LABS: BASOPHILS % 0.5 % (0.0-2.0); EOSINOPHILS % 3.9 % (0.0-5.0); HEMOGLOBIN. 12.2 g/dL (14.0-18.0); LYMPHOCYTES % 30.2 % (20.0-50.0); MEAN CORPUSCULAR VOLUME 84.6 fL (80.0-94.0); MEAN PLATELET VOLUME 9.2 fl (7.4-10.4); MONOCYTES % 8.5 % (2.0-8.0); NEUTROPHILS % 56.9 % (40.0-76.0); PLATELET 228 x1000/uL (130-400); RED BLOOD CELL COUNT 4.38 mill/uL (4.7-6.1); RED CELL DISTRIBUTION WIDTH 15.5 % (11.6-14.6)
[2019-10-11 14:42] LABS: CHLORIDE 98 mEq/L (98-107)
[2019-10-11 14:43] LABS: INR 1.1; PROTHROMBIN TIME 11.9 sec (9.6-11.0)
[2019-10-11 21:00] VITALS: BP 130/60
== END 2019-10-11 21:16 | disposition home or self-care (01) ==
LOC: ER 13:31
DX: L89.899 Pressure ulcer of other site, unspecified stage (principal); L08.89 Other specified local infections of the skin and subcutaneous tissue; L89.302 Pressure ulcer of unspecified buttock, stage 2; E11.9 Type 2 diabetes mellitus without complications; I10 Essential (primary) hypertension; E66.01 Morbid (severe) obesity due to excess calories; Z68.43 Body mass index [BMI] 50.0-59.9, adult; Z79.4 Long term (current) use of insulin
CPT/HCPCS: 36415; 36569; 71045; 76937; 80053; 85025; 85610; 96374; 99285; C1725; J2185; J3490; J7050

== ENCOUNTER 2020-01-04 19:09 | Emergency (ER) | payer MEDICARE ==
[~2020-01-04] VITALS: Ht 182.9 cm; Wt 181.0 kg
[~2020-01-04 19:09] MED LIST changes: +INSU100V3 SUBCUT
[2020-01-04 21:06] LABS: HEMATOCRIT 35.1 % (42.0-52.0); HEMOGLOBIN 11.6 g/dL (14.0-18.0); MEAN CORPUSCULAR HEMOGLOBIN 27.6 pg (28.0-32.0); MEAN CORPUSCULAR VOLUME 83.3 fL (80.0-94.0); PLATELET 198 x1000/uL (130-400); RED BLOOD CELL COUNT 4.22 mill/uL (4.7-6.1); RED CELL DISTRIBUTION WIDTH 15.8 % (11.6-14.6)
[2020-01-04 21:15] LABS: CHLORIDE 100 mEq/L (98-107)
[2020-01-05 10:38] VITALS: BP 147/78
== END 2020-01-05 10:50 | disposition home or self-care (01) ==
LOC: ER 19:09
DX: R60.9 Edema, unspecified (principal); W18.39XA Other fall on same level, initial encounter; Y93.89 Activity, other specified; Y92.89 Other specified places as the place of occurrence of the external cause; Y99.8 Other external cause status; E11.9 Type 2 diabetes mellitus without complications; I10 Essential (primary) hypertension; F17.290 Nicotine dependence, other tobacco product, uncomplicated; Z79.4 Long term (current) use of insulin; Z79.899 Other long term (current) drug therapy
CPT/HCPCS: 36415; 80048; 84484; 85027; 93005; 99285

== ENCOUNTER 2020-01-26 18:47 | Inpatient (IN) | payer MEDICARE ==
[~2020-01-26] VITALS: Ht 175.3 cm; Wt 176.9 kg
[2020-01-26 22:23] LABS: BASOPHILS % 0.5 % (0.0-2.0); EOSINOPHILS % 4.1 % (0.0-5.0); HEMATOCRIT. 37.4 % (42.0-52.0); HEMOGLOBIN. 12.1 g/dL (14.0-18.0); LYMPHOCYTES % 16.5 % (20.0-50.0); MEAN CORPUSCULAR HEMOGLOBIN 27.3 pg (28.0-32.0); MEAN CORPUSCULAR VOLUME 84.3 fL (80.0-94.0); MEAN PLATELET VOLUME 8.3 fl (7.4-10.4); MONOCYTES % 7.8 % (2.0-8.0); NEUTROPHILS % 71.1 % (40.0-76.0); PLATELET 305 x1000/uL (130-400); RED BLOOD CELL COUNT 4.44 mill/uL (4.7-6.1)
[2020-01-26 22:28] LABS: CHLORIDE 96 mEq/L (98-107)
[2020-01-26 22:32] LABS: INR 1.2; PROTHROMBIN TIME 12.1 sec (9.6-11.0)
[2020-01-27] MEDS ORDERED: MORPHINE SULFATE 0.5MG/ML SYR 1ML(NEO) IV ONE (00:45)
[2020-01-27] MEDS ORDERED: MORPHINE SULFATE 4 MG/ML CPJ (NOT FOR IM USE) IV ONE (01:00)
[2020-01-27] MEDS: HYDROCODONE/ACETAMINOPHEN 5/325MG TABLET PO PRN ×2 (02:16→11:01)
[2020-01-27] MEDS ORDERED: ENOXAPARIN 40MG/0.4ML SYR SUBCUT SCH (03:15)
[2020-01-27] MEDS ORDERED: GUAIFENESIN 200MG/10ML SUGAR FREE UDC PO PRN (03:15)
[2020-01-27] MEDS ORDERED: DEXTROSE 50% WATER 50ML SYRINGE IV PRN (03:15)
[2020-01-27] MEDS ORDERED: DIPHENHYDRAMINE 50MG/ML VIAL IV PRN (03:15)
[2020-01-27] MEDS ORDERED: ONDANSETRON HCL 4MG/2ML INJ IV PRN (03:15)
[2020-01-27] MEDS ORDERED: CLONIDINE 0.1MG TABLET PO PRN (03:15)
[2020-01-27] MEDS ORDERED: MAGNESIUM/ALUMINUM HYDROXIDE/SIMETHICONE 30ML UDC PO PRN (03:15)
[2020-01-27] MEDS ORDERED: ACETAMINOPHEN 325MG TABLET PO PRN ×2 (03:15)
[2020-01-27] MEDS ORDERED: ZOLPIDEM TARTRATE 5MG TABLET PO PRN (03:15)
[2020-01-27] MEDS: MORPHINE SULFATE 2 MG/ML CPJ (NOT FOR IM USE) IV PRN ×4 (03:26→21:22)
[2020-01-27] MEDS ORDERED: KETOROLAC 30MG/ML VIAL IV PRN (03:30)
[2020-01-27] MEDS ORDERED: PIPERACILLIN/TAZ 3.375G PREMIX 50 ML IV SCH (04:00)
[2020-01-27 05:22] VITALS: BP 121/68
[2020-01-27] MEDS ORDERED: ALLO100T PO (05:58)
[2020-01-27 06:00] VITALS: BP 121/68
[2020-01-27] MEDS ORDERED: TRAM50TA PO (06:00)
[2020-01-27] MEDS ORDERED: POTA-9 PO (06:25)
[2020-01-27] MEDS ORDERED: GABA-290 PO (06:26)
[2020-01-27] MEDS ORDERED: SULF-288 MT (06:29)
[2020-01-27] MEDS: BLOOD SUGAR DIAGNOSTIC STRIP TEST SCH ×4 (06:40→20:39)
[2020-01-27] MEDS: SODIUM CHLORIDE 0.9% INJ 3ML FLUSH IVF SCH ×3 (06:41→22:42)
[2020-01-27 08:00] VITALS: BP 151/69
[2020-01-27] MEDS: ASCORBIC ACID 500 MG TABLET PO SCH (08:27)
[2020-01-27] MEDS: ZINC SULFATE 220 MG ( 50 ) CAPSULE PO SCH (08:27)
[2020-01-27] MEDS: MULTIVITAMINS,THER W-MINERALS TABLET PO SCH (08:27)
[2020-01-27] MEDS: ENOXAPARIN 40MG/0.4ML SYR SUBCUT SCH ×2 (08:27→20:39)
[2020-01-27] MEDS: INSULIN LISPRO 100 UNITS/ML SUBCUT SCH ×4 (08:44→21:37)
[2020-01-27 12:00] VITALS: BP 133/66
[2020-01-27] MEDS: PIPERACILLIN/TAZOBACTAM 3.375 G in DEXT 5% WATER 100 ML IV SCH ×2 (13:08→17:05)
[2020-01-27 16:00] VITALS: BP 139/56
[2020-01-27] MEDS: GABAPENTIN 300MG CAPSULE PO SCH (16:18)
[2020-01-27] MEDS: GLYBURIDE 5MG TABLET PO SCH (16:18)
[2020-01-27 20:00] VITALS: BP 152/72
[2020-01-27] MEDS ORDERED: INSULIN GLARGINE UD 100 UNITS/ML SYR SUBCUT SCH ×2 (22:00)
[2020-01-27] MEDS: INSULIN GLARGINE UD 100 UNITS/ML SYR SUBCUT SCH (22:44)
[2020-01-28] VITALS: BP 133/55
[2020-01-28] MEDS: MORPHINE SULFATE 2 MG/ML CPJ (NOT FOR IM USE) IV PRN ×4 (02:04→21:30)
[2020-01-28] MEDS: PIPERACILLIN/TAZOBACTAM 3.375 G in DEXT 5% WATER 100 ML IV SCH ×4 (02:06→17:37)
[2020-01-28 04:00] VITALS: BP 157/51
[2020-01-28] MEDS: SODIUM CHLORIDE 0.9% INJ 3ML FLUSH IVF SCH ×3 (06:14→21:28)
[2020-01-28] MEDS: BLOOD SUGAR DIAGNOSTIC STRIP TEST SCH ×4 (06:26→21:28)
[2020-01-28] MEDS: INSULIN LISPRO 100 UNITS/ML SUBCUT SCH ×4 (07:48→21:34)
[2020-01-28 08:00] VITALS: BP 132/55
[2020-01-28] MEDS: ASCORBIC ACID 500 MG TABLET PO SCH (08:35)
[2020-01-28] MEDS: MULTIVITAMINS,THER W-MINERALS TABLET PO SCH (08:35)
[2020-01-28] MEDS: ZINC SULFATE 220 MG ( 50 ) CAPSULE PO SCH (08:35)
[2020-01-28] MEDS: GLYBURIDE 5MG TABLET PO SCH ×2 (08:35→17:36)
[2020-01-28] MEDS: GABAPENTIN 300MG CAPSULE PO SCH ×2 (08:35→17:37)
[2020-01-28] MEDS: METFORMIN HCL 500MG TABLET PO SCH (08:36)
[2020-01-28] MEDS: ALLOPURINOL 100 MG TABLET PO SCH (08:36)
[2020-01-28] MEDS: POTASSIUM CHLORIDE 10MEQ TABLET SR PO SCH (08:37)
[2020-01-28] MEDS: ENOXAPARIN 40MG/0.4ML SYR SUBCUT SCH ×2 (08:37→21:28)
[2020-01-28 12:00] VITALS: BP 141/69
[2020-01-28 16:00] VITALS: BP 144/56
[2020-01-28 20:00] VITALS: BP 142/62
[2020-01-28] MEDS: INSULIN GLARGINE UD 100 UNITS/ML SYR SUBCUT SCH (21:35)
[2020-01-29] VITALS: BP 135/80
[2020-01-29] MEDS: PIPERACILLIN/TAZOBACTAM 3.375 G in DEXT 5% WATER 100 ML IV SCH ×5 (01:19→23:51)
[2020-01-29 04:00] VITALS: BP 151/67
[2020-01-29] MEDS: SODIUM CHLORIDE 0.9% INJ 3ML FLUSH IVF SCH ×3 (06:07→21:57)
[2020-01-29] MEDS: BLOOD SUGAR DIAGNOSTIC STRIP TEST SCH ×4 (07:44→21:57)
[2020-01-29 08:00] VITALS: BP 135/49
[2020-01-29] MEDS: INSULIN LISPRO 100 UNITS/ML SUBCUT SCH ×4 (09:18→22:13)
[2020-01-29] MEDS: GLYBURIDE 5MG TABLET PO SCH ×2 (09:19→18:00)
[2020-01-29] MEDS: POTASSIUM CHLORIDE 10MEQ TABLET SR PO SCH (09:19)
[2020-01-29] MEDS: MULTIVITAMINS,THER W-MINERALS TABLET PO SCH (09:19)
[2020-01-29] MEDS: METFORMIN HCL 500MG TABLET PO SCH (09:19)
[2020-01-29] MEDS: GABAPENTIN 300MG CAPSULE PO SCH ×2 (09:19→18:00)
[2020-01-29] MEDS: ASCORBIC ACID 500 MG TABLET PO SCH (09:19)
[2020-01-29] MEDS: ZINC SULFATE 220 MG ( 50 ) CAPSULE PO SCH (09:19)
[2020-01-29] MEDS: ENOXAPARIN 40MG/0.4ML SYR SUBCUT SCH ×2 (09:20→21:57)
[2020-01-29] MEDS: ALLOPURINOL 100 MG TABLET PO SCH (09:20)
[2020-01-29] MEDS: HYDROCODONE/ACETAMINOPHEN 5/325MG TABLET PO PRN (11:14)
[2020-01-29 12:00] VITALS: BP 122/59
[2020-01-29] MEDS: MORPHINE SULFATE 2 MG/ML CPJ (NOT FOR IM USE) IV PRN ×2 (15:56→22:24)
[2020-01-29 16:00] VITALS: BP 117/47
[2020-01-29 20:00] VITALS: BP 144/58
[2020-01-29] MEDS: INSULIN GLARGINE UD 100 UNITS/ML SYR SUBCUT SCH (22:54)
[2020-01-30] VITALS (7 sets, daily range): BP systolic 117–149; BP diastolic 65–88
[2020-01-30] MEDS: MORPHINE SULFATE 2 MG/ML CPJ (NOT FOR IM USE) IV PRN ×4 (02:31→18:58)
[2020-01-30] MEDS: SODIUM CHLORIDE 0.9% INJ 3ML FLUSH IVF SCH ×3 (06:49→21:48)
[2020-01-30] MEDS: PIPERACILLIN/TAZOBACTAM 3.375 G in DEXT 5% WATER 100 ML IV SCH ×2 (06:49→12:53)
[2020-01-30] MEDS: BLOOD SUGAR DIAGNOSTIC STRIP TEST SCH ×4 (07:26→20:59)
[2020-01-30] MEDS: INSULIN LISPRO 100 UNITS/ML SUBCUT SCH ×4 (07:50→20:59)
[2020-01-30] MEDS: ENOXAPARIN 40MG/0.4ML SYR SUBCUT SCH ×2 (09:04→20:59)
[2020-01-30] MEDS: ALLOPURINOL 100 MG TABLET PO SCH (09:04)
[2020-01-30] MEDS: ASCORBIC ACID 500 MG TABLET PO SCH (09:04)
[2020-01-30] MEDS: METFORMIN HCL 500MG TABLET PO SCH (09:04)
[2020-01-30] MEDS: GABAPENTIN 300MG CAPSULE PO SCH ×2 (09:04→16:13)
[2020-01-30] MEDS: ZINC SULFATE 220 MG ( 50 ) CAPSULE PO SCH (09:04)
[2020-01-30] MEDS: POTASSIUM CHLORIDE 10MEQ TABLET SR PO SCH (09:04)
[2020-01-30] MEDS: MULTIVITAMINS,THER W-MINERALS TABLET PO SCH (09:04)
[2020-01-30] MEDS: GLYBURIDE 5MG TABLET PO SCH ×2 (09:04→16:13)
[2020-01-30] MEDS: HYDROCODONE/ACETAMINOPHEN 5/325MG TABLET PO PRN (09:45)
[2020-01-30] MEDS ORDERED: METOLAZONE 10MG TABLET PO NR (15:00)
[2020-01-30] MEDS: POTASSIUM CHLORIDE 20MEQ TABLET SR PO SCH (16:13)
[2020-01-30] MEDS: FUROSEMIDE 40MG TABLET PO SCH (16:13)
[2020-01-30] MEDS: INSULIN GLARGINE UD 100 UNITS/ML SYR SUBCUT SCH (21:50)
[2020-01-31] VITALS: BP 150/77
[2020-01-31 04:00] VITALS: BP 105/47
[2020-01-31] MEDS: MORPHINE SULFATE 2 MG/ML CPJ (NOT FOR IM USE) IV PRN ×3 (04:13→15:43)
[2020-01-31] MEDS: SODIUM CHLORIDE 0.9% INJ 3ML FLUSH IVF SCH ×3 (06:50→22:47)
[2020-01-31] MEDS: BLOOD SUGAR DIAGNOSTIC STRIP TEST SCH ×4 (06:56→21:18)
[2020-01-31] MEDS: INSULIN LISPRO 100 UNITS/ML SUBCUT SCH ×4 (07:50→21:00)
[2020-01-31 08:00] VITALS: BP 133/60
[2020-01-31] MEDS: ENOXAPARIN 40MG/0.4ML SYR SUBCUT SCH ×2 (09:44→21:18)
[2020-01-31] MEDS: MULTIVITAMINS,THER W-MINERALS TABLET PO SCH (09:45)
[2020-01-31] MEDS: FUROSEMIDE 40MG TABLET PO SCH (09:45)
[2020-01-31] MEDS: POTASSIUM CHLORIDE 20MEQ TABLET SR PO SCH (09:45)
[2020-01-31] MEDS: GABAPENTIN 300MG CAPSULE PO SCH ×2 (09:45→17:28)
[2020-01-31] MEDS: ASCORBIC ACID 500 MG TABLET PO SCH (09:45)
[2020-01-31] MEDS: GLYBURIDE 5MG TABLET PO SCH ×2 (09:46→17:28)
[2020-01-31] MEDS: METFORMIN HCL 500MG TABLET PO SCH (09:47)
[2020-01-31] MEDS: ALLOPURINOL 100 MG TABLET PO SCH (09:47)
[2020-01-31] MEDS: ZINC SULFATE 220 MG ( 50 ) CAPSULE PO SCH (09:47)
[2020-01-31 12:00] VITALS: BP 128/82
[2020-01-31 16:00] VITALS: BP 132/86
[2020-01-31] MEDS: ASPIRIN 81MG TABLET PO PRN (16:24)
[2020-01-31 20:00] VITALS: BP 125/68
[2020-01-31] MEDS: INSULIN GLARGINE UD 100 UNITS/ML SYR SUBCUT SCH (22:00)
[2020-02-01] VITALS: BP 134/57
[2020-02-01 04:00] VITALS: BP 98/56
[2020-02-01] MEDS: SODIUM CHLORIDE 0.9% INJ 3ML FLUSH IVF SCH ×3 (06:54→21:05)
[2020-02-01] MEDS: BLOOD SUGAR DIAGNOSTIC STRIP TEST SCH ×4 (06:59→20:53)
[2020-02-01] MEDS: INSULIN LISPRO 100 UNITS/ML SUBCUT SCH ×4 (07:50→20:59)
[2020-02-01 08:00] VITALS: BP 113/62
[2020-02-01] MEDS: METFORMIN HCL 500MG TABLET PO SCH (08:33)
[2020-02-01] MEDS: POTASSIUM CHLORIDE 20MEQ TABLET SR PO SCH (08:33)
[2020-02-01] MEDS: GLYBURIDE 5MG TABLET PO SCH ×2 (08:33→16:56)
[2020-02-01] MEDS: MULTIVITAMINS,THER W-MINERALS TABLET PO SCH (08:33)
[2020-02-01] MEDS: ALLOPURINOL 100 MG TABLET PO SCH (08:33)
[2020-02-01] MEDS: GABAPENTIN 300MG CAPSULE PO SCH ×2 (08:33→16:56)
[2020-02-01] MEDS: ASCORBIC ACID 500 MG TABLET PO SCH (08:33)
[2020-02-01] MEDS: FUROSEMIDE 40MG TABLET PO SCH (08:33)
[2020-02-01] MEDS: ZINC SULFATE 220 MG ( 50 ) CAPSULE PO SCH (08:33)
[2020-02-01] MEDS: ENOXAPARIN 40MG/0.4ML SYR SUBCUT SCH ×2 (08:34→20:54)
[2020-02-01] MEDS ORDERED: HYDROCODONE/ACETAMINOPHEN 5/325MG TABLET PO PRN (10:45)
[2020-02-01] MEDS: KETOROLAC 30MG/ML VIAL IV PRN (10:59)
[2020-02-01 12:00] VITALS: BP 133/59
[2020-02-01 16:00] VITALS: BP 145/69
[2020-02-01] MEDS: INSULIN GLARGINE UD 100 UNITS/ML SYR SUBCUT SCH (21:09)
[2020-02-02] VITALS: BP 126/62
[2020-02-02] MEDS: KETOROLAC 30MG/ML VIAL IV PRN ×3 (00:30→23:36)
[2020-02-02] MEDS: SODIUM CHLORIDE 0.9% INJ 3ML FLUSH IVF SCH ×3 (05:51→21:25)
[2020-02-02] MEDS: BLOOD SUGAR DIAGNOSTIC STRIP TEST SCH ×4 (06:27→20:52)
[2020-02-02] MEDS: INSULIN LISPRO 100 UNITS/ML SUBCUT SCH ×4 (07:42→20:52)
[2020-02-02 08:00] VITALS: BP 137/92
[2020-02-02] MEDS: FUROSEMIDE 40MG TABLET PO SCH (09:15)
[2020-02-02] MEDS: MULTIVITAMINS,THER W-MINERALS TABLET PO SCH (09:15)
[2020-02-02] MEDS: GABAPENTIN 300MG CAPSULE PO SCH ×2 (09:15→17:05)
[2020-02-02] MEDS: GLYBURIDE 5MG TABLET PO SCH ×2 (09:15→17:05)
[2020-02-02] MEDS: METFORMIN HCL 500MG TABLET PO SCH (09:15)
[2020-02-02] MEDS: ASCORBIC ACID 500 MG TABLET PO SCH (09:15)
[2020-02-02] MEDS: ALLOPURINOL 100 MG TABLET PO SCH (09:16)
[2020-02-02] MEDS: ENOXAPARIN 40MG/0.4ML SYR SUBCUT SCH ×2 (09:16→20:52)
[2020-02-02] MEDS: ZINC SULFATE 220 MG ( 50 ) CAPSULE PO SCH (09:16)
[2020-02-02] MEDS: POTASSIUM CHLORIDE 20MEQ TABLET SR PO SCH (09:16)
[2020-02-02 12:00] VITALS: BP 127/55
[2020-02-02 20:00] VITALS: BP 118/54
[2020-02-02] MEDS: INSULIN GLARGINE UD 100 UNITS/ML SYR SUBCUT SCH (21:32)
[2020-02-03] VITALS: BP 116/65
[2020-02-03] MEDS: SODIUM CHLORIDE 0.9% INJ 3ML FLUSH IVF SCH ×2 (06:41→14:10)
[2020-02-03] MEDS: BLOOD SUGAR DIAGNOSTIC STRIP TEST SCH ×3 (06:46→17:54)
[2020-02-03] MEDS: INSULIN LISPRO 100 UNITS/ML SUBCUT SCH ×3 (07:50→17:50)
[2020-02-03] MEDS: KETOROLAC 30MG/ML VIAL IV PRN ×2 (09:15→15:55)
[2020-02-03] MEDS: ALLOPURINOL 100 MG TABLET PO SCH (09:18)
[2020-02-03] MEDS: MULTIVITAMINS,THER W-MINERALS TABLET PO SCH (09:18)
[2020-02-03] MEDS: FUROSEMIDE 40MG TABLET PO SCH (09:18)
[2020-02-03] MEDS: ZINC SULFATE 220 MG ( 50 ) CAPSULE PO SCH (09:18)
[2020-02-03] MEDS: ASCORBIC ACID 500 MG TABLET PO SCH (09:18)
[2020-02-03] MEDS: GABAPENTIN 300MG CAPSULE PO SCH ×2 (09:18→18:10)
[2020-02-03] MEDS: ASPIRIN 81MG TABLET PO PRN (09:18)
[2020-02-03] MEDS: ENOXAPARIN 40MG/0.4ML SYR SUBCUT SCH (09:19)
[2020-02-03] MEDS: GLYBURIDE 5MG TABLET PO SCH ×2 (09:19→16:46)
[2020-02-03] MEDS: POTASSIUM CHLORIDE 20MEQ TABLET SR PO SCH (09:19)
[2020-02-03] MEDS: METFORMIN HCL 500MG TABLET PO SCH (09:19)
[2020-02-03 16:45] VITALS: BP 124/42
== END 2020-02-03 19:30 | DRG 602 ==
LOC: ER 18:47 → 6EST 01-27 01:37 → EDBEDREQ 01-27 01:39 → EDBEDREQTM 01-27 01:39 → EDBEDREQDT 01-27 01:39 → ENRESERV 01-27 04:40
PROVIDERS: ADMIT Internal Medicine; ATTEND Internal Medicine
DX: L03.115 Cellulitis of right lower limb (principal); I50.43 Acute on chronic combined systolic (congestive) and diastolic (congestive) heart failure; L97.919 Non-pressure chronic ulcer of unspecified part of right lower leg with unspecified severity; Z68.43 Body mass index [BMI] 50.0-59.9, adult; L97.929 Non-pressure chronic ulcer of unspecified part of left lower leg with unspecified severity; L03.116 Cellulitis of left lower limb; E66.01 Morbid (severe) obesity due to excess calories; I11.0 Hypertensive heart disease with heart failure; E11.51 Type 2 diabetes mellitus with diabetic peripheral angiopathy without gangrene; I87.8 Other specified disorders of veins; M10.9 Gout, unspecified; Z79.4 Long term (current) use of insulin; Z79.84 Long term (current) use of oral hypoglycemic drugs; Z79.899 Other long term (current) drug therapy; R26.89 Other abnormalities of gait and mobility; M94.0 Chondrocostal junction syndrome [Tietze]
CPT/HCPCS: 36415; 71045; 80053; 82962; 84484; 85025; 85379; 93005; 93306; 93923; 97022; 97162; 97166; 97530; 97535; 99285; J1650; J1815; J1885; J2270; J2543; J7060

== ENCOUNTER 2020-06-19 11:33 | Emergency (ER) | payer MEDICARE ==
[~2020-06-19] VITALS: Ht 177.8 cm; Wt 181.4 kg
[~2020-06-19 11:33] MED LIST changes: +ALLO100T PO; +GABA-290 PO; +POTA-9 PO; +SULF-288 MT; +TRAM50TA PO
[2020-06-19] MEDS ORDERED: HYDROCODONE/ACETAMINOPHEN 5/325MG TABLET PO ONE (14:45)
[2020-06-19 21:43] VITALS: BP 141/82
== END 2020-06-19 23:18 | disposition home or self-care (01) ==
LOC: ER 11:33
DX: R62.7 Adult failure to thrive (principal); L08.89 Other specified local infections of the skin and subcutaneous tissue; R26.2 Difficulty in walking, not elsewhere classified; Z91.81 History of falling; Z68.43 Body mass index [BMI] 50.0-59.9, adult; I11.0 Hypertensive heart disease with heart failure; I50.9 Heart failure, unspecified; E11.9 Type 2 diabetes mellitus without complications; E66.01 Morbid (severe) obesity due to excess calories; I44.4 Left anterior fascicular block; Z87.898 Personal history of other specified conditions; Z79.899 Other long term (current) drug therapy
CPT/HCPCS: 93005; 99285

== ENCOUNTER 2020-06-21 16:59 | Inpatient (IN) | payer MEDICARE, BC ==
[~2020-06-21] VITALS: Ht 175.3 cm; Wt 181.4 kg
[2020-06-21 20:24] LABS: BASOPHILS % 0.5 % (0.0-2.0); EOSINOPHILS % 4.9 % (0.0-5.0); HEMATOCRIT. 32.8 % (42.0-52.0); HEMOGLOBIN. 10.4 g/dL (14.0-18.0); LYMPHOCYTES % 13.8 % (20.0-50.0); MEAN CORPUSCULAR HEMOGLOBIN 26.2 pg (28.0-32.0); MEAN CORPUSCULAR VOLUME 82.8 fL (80.0-94.0); MEAN PLATELET VOLUME 8.8 fl (7.4-10.4); MONOCYTES % 7.6 % (2.0-8.0); NEUTROPHILS % 73.2 % (40.0-76.0); PLATELET 263 x1000/uL (130-400); RED BLOOD CELL COUNT 3.96 mill/uL (4.7-6.1); RED CELL DISTRIBUTION WIDTH 17.5 % (11.6-14.6)
[2020-06-21 20:27] LABS: CHLORIDE 103 mEq/L (98-107)
[2020-06-21 20:28] LABS: INR 1.2; PARTIAL THROMBOPLASTIN TIME 32.9 sec (23.4-31.0); PROTHROMBIN TIME 12.9 sec (9.6-11.0)
[2020-06-21] MEDS ORDERED: ASPIRIN 325MG EC TABLET PO ONE (21:30)
[2020-06-21] MEDS ORDERED: MORPHINE SULFATE 2 MG/ML CPJ (NOT FOR IM USE) IV PRN (23:15)
[2020-06-21] MEDS ORDERED: TRAMADOL 50MG TABLET PO PRN (23:30)
[2020-06-21] MEDS ORDERED: DEXTROSE 50% WATER 50ML SYRINGE IV PRN (23:30)
[2020-06-21] MEDS ORDERED: ONDANSETRON HCL 4MG/2ML INJ IV PRN (23:30)
[2020-06-22] MEDS: HYDROCODONE/ACETAMINOPHEN 5/325MG TABLET PO PRN ×2 (05:43→11:35)
[2020-06-22] MEDS ORDERED: INSULIN GLARGINE UD 100 UNITS/ML SYR SUBCUT SCH (10:00)
[2020-06-22] MEDS: INSULIN LISPRO 100 UNITS/ML SUBCUT SCH ×4 (10:37→21:53)
[2020-06-22] MEDS: BLOOD SUGAR DIAGNOSTIC STRIP TEST SCH ×4 (10:38→21:47)
[2020-06-22 11:53] VITALS: BP 141/70
[2020-06-22 12:00] VITALS: BP 141/75
[2020-06-22] MEDS ORDERED: VANCOMYCIN 2,000 MG in DEXT 5% WATER 500 ML IV SCH (16:00)
[2020-06-22 17:00] VITALS: BP 135/70
[2020-06-22 20:00] VITALS: BP 147/72
[2020-06-22] MEDS: ENOXAPARIN 40MG/0.4ML SYR SUBCUT SCH (21:54)
[2020-06-22] MEDS: INSULIN GLARGINE UD 100 UNITS/ML SYR SUBCUT SCH (23:22)
[2020-06-22 23:56] LABS: BASOPHILS % 0.4 % (0.0-2.0); HEMATOCRIT. 31.9 % (42.0-52.0); HEMOGLOBIN. 10.1 g/dL (14.0-18.0); LYMPHOCYTES % 18.2 % (20.0-50.0); MEAN CORPUSCULAR HEMOGLOBIN 26.2 pg (28.0-32.0); MEAN PLATELET VOLUME 8.3 fl (7.4-10.4); MONOCYTES % 8.8 % (2.0-8.0); NEUTROPHILS % 64.6 % (40.0-76.0); PLATELET 277 x1000/uL (130-400); RED BLOOD CELL COUNT 3.84 mill/uL (4.7-6.1); RED CELL DISTRIBUTION WIDTH 17.3 % (11.6-14.6)
[2020-06-23] VITALS: BP 134/78
[2020-06-23 02:14] LABS: CLARITY URINE CLEAR (CLEAR); COLOR URINE YELLOW (YELLOW); KETONES URINE NEGATIVE (NEGATIVE); LEUKOCYTE ESTERASE URINE 1+ (NEGATIVE); NITRITE URINE NEGATIVE (NEGATIVE); OCCULT BLOOD URINE NEGATIVE (NEGATIVE); PH URINE 5.5 (4.5-8.0); PROTEIN URINE TRACE (NEGATIVE); SPECIFIC GRAVITY URINE 1.018 (1.005-1.030); UROBILINOGEN URINE 0.2 E.U./dL (0.2-1.0)
[2020-06-23 02:37] LABS: *AMPHETAMINES SCREEN URINE NEGATIVE (NEGATIVE); *BARBITURATES SCREEN URINE NEGATIVE (NEGATIVE); *BENZODIAZEPINES SCREEN URINE NEGATIVE (NEGATIVE); *COCAINE SCREEN URINE NEGATIVE (NEGATIVE); METHADONE URINE SCREEN NEGATIVE (NEGATIVE); OPIATES URINE SCREEN PRESUMTIVE POSITIVE (NEGATIVE); PHENCYCLIDINE URINE SCREEN NEGATIVE (NEGATIVE)
[2020-06-23 02:38] LABS: CANNABINOID URINE SCREEN NEGATIVE (NEGATIVE)
[2020-06-23] MEDS: BLOOD SUGAR DIAGNOSTIC STRIP TEST SCH ×4 (07:20→21:00)
[2020-06-23 08:00] VITALS: BP 124/49
[2020-06-23] MEDS: HYDROCODONE/ACETAMINOPHEN 5/325MG TABLET PO PRN (08:24)
[2020-06-23] MEDS: ENOXAPARIN 40MG/0.4ML SYR SUBCUT SCH ×2 (08:27→21:00)
[2020-06-23] MEDS: INSULIN LISPRO 100 UNITS/ML SUBCUT SCH ×4 (08:29→21:00)
[2020-06-23] MEDS: INSULIN GLARGINE UD 100 UNITS/ML SYR SUBCUT SCH ×2 (10:58→21:49)
[2020-06-23] MEDS ORDERED: VANCOMYCIN 1500MG in DEXTROSE 5% WATER 250ML IV SCH (14:00)
[2020-06-23 16:00] VITALS: BP 106/51
[2020-06-23 20:00] VITALS: BP 102/37
[2020-06-24] VITALS: BP 120/58
[2020-06-24 04:00] VITALS: BP 128/66
[2020-06-24] MEDS: HYDROCODONE/ACETAMINOPHEN 5/325MG TABLET PO PRN (06:02)
[2020-06-24] MEDS: BLOOD SUGAR DIAGNOSTIC STRIP TEST SCH ×3 (06:25→17:20)
[2020-06-24 07:19] LABS: CHLORIDE 104 mEq/L (98-107)
[2020-06-24] MEDS: INSULIN LISPRO 100 UNITS/ML SUBCUT SCH ×4 (07:50→22:38)
[2020-06-24 08:00] VITALS: BP 141/60
[2020-06-24] MEDS: ENOXAPARIN 40MG/0.4ML SYR SUBCUT SCH ×2 (09:55→22:41)
[2020-06-24] MEDS: INSULIN GLARGINE UD 100 UNITS/ML SYR SUBCUT SCH ×2 (09:56→22:40)
[2020-06-24 12:00] VITALS: BP 129/67
[2020-06-24 16:00] VITALS: BP 105/62
[2020-06-24] MEDS: VANCOMYCIN 1250MG in DEXTROSE 5% WATER 250ML IV SCH (17:23)
[2020-06-24 20:00] VITALS: BP 107/53
[2020-06-25] VITALS: BP 110/47
[2020-06-25 04:00] VITALS: BP 112/51
[2020-06-25] MEDS: HYDROCODONE/ACETAMINOPHEN 5/325MG TABLET PO PRN ×2 (06:06→20:35)
[2020-06-25] MEDS: INSULIN LISPRO 100 UNITS/ML SUBCUT SCH ×4 (07:50→20:36)
[2020-06-25 08:49] VITALS: BP 114/60
[2020-06-25] MEDS: ENOXAPARIN 40MG/0.4ML SYR SUBCUT SCH ×2 (09:28→20:37)
[2020-06-25] MEDS: INSULIN GLARGINE UD 100 UNITS/ML SYR SUBCUT SCH ×2 (10:30→22:19)
[2020-06-25] MEDS: BLOOD SUGAR DIAGNOSTIC STRIP TEST SCH (12:20)
[2020-06-25 12:35] VITALS: BP 105/51
[2020-06-25 16:10] VITALS: BP 103/49
[2020-06-25] MEDS: VANCOMYCIN 1250MG in DEXTROSE 5% WATER 250ML IV SCH (18:02)
[2020-06-25 20:00] VITALS: BP 130/61
[2020-06-26 06:41] LABS: BASOPHILS % 0.9 % (0.0-2.0); EOSINOPHILS % 7.3 % (0.0-5.0); HEMATOCRIT. 30.6 % (42.0-52.0); HEMOGLOBIN. 9.9 g/dL (14.0-18.0); MEAN CORPUSCULAR HEMOGLOBIN 26.5 pg (28.0-32.0); MEAN CORPUSCULAR VOLUME 81.9 fL (80.0-94.0); MEAN PLATELET VOLUME 8.1 fl (7.4-10.4); MONOCYTES % 11.2 % (2.0-8.0); NEUTROPHILS % 55.6 % (40.0-76.0); PLATELET 259 x1000/uL (130-400); RED BLOOD CELL COUNT 3.74 mill/uL (4.7-6.1); RED CELL DISTRIBUTION WIDTH 17.1 % (11.6-14.6)
[2020-06-26 07:17] LABS: CHLORIDE 104 mEq/L (98-107)
[2020-06-26] MEDS: INSULIN LISPRO 100 UNITS/ML SUBCUT SCH ×4 (07:50→20:38)
[2020-06-26 08:00] VITALS: BP 115/64
[2020-06-26] MEDS: BLOOD SUGAR DIAGNOSTIC STRIP TEST SCH ×4 (08:09→20:38)
[2020-06-26] MEDS: MULTIVITAMINS,THER W-MINERALS TABLET PO SCH (09:33)
[2020-06-26] MEDS: ENOXAPARIN 40MG/0.4ML SYR SUBCUT SCH ×2 (09:34→21:00)
[2020-06-26] MEDS: INSULIN GLARGINE UD 100 UNITS/ML SYR SUBCUT SCH ×2 (10:36→20:38)
[2020-06-26 12:00] VITALS: BP 136/64
[2020-06-26] MEDS: CEFEPIME 1,000 MG in DEXTROSE 5% WATER 50 ML IV SCH (13:00)
[2020-06-26] MEDS ORDERED: SORBITOL 70% SOLN 30ML PO SCH (13:15)
[2020-06-26] MEDS ORDERED: NA PHOS,M-B/NA PHOS,DI-BA ENEMA 118ML PR SCH (13:15)
[2020-06-26 16:00] VITALS: BP 122/66
[2020-06-26] MEDS: VANCOMYCIN 1250MG in DEXTROSE 5% WATER 250ML IV SCH (18:00)
[2020-06-26 20:00] VITALS: BP 106/74
[2020-06-27] MEDS: CEFEPIME 1,000 MG in DEXTROSE 5% WATER 50 ML IV SCH ×2 (00:19→13:00)
[2020-06-27] MEDS: BLOOD SUGAR DIAGNOSTIC STRIP TEST SCH ×4 (06:37→21:00)
[2020-06-27] MEDS: INSULIN LISPRO 100 UNITS/ML SUBCUT SCH ×4 (07:50→21:00)
[2020-06-27 08:00] VITALS: BP 113/59
[2020-06-27] MEDS: MULTIVITAMINS,THER W-MINERALS TABLET PO SCH (08:37)
[2020-06-27] MEDS: ENOXAPARIN 40MG/0.4ML SYR SUBCUT SCH ×2 (08:39→21:00)
[2020-06-27 08:57] LABS: CHLORIDE 103 mEq/L (98-107)
[2020-06-27] MEDS: INSULIN GLARGINE UD 100 UNITS/ML SYR SUBCUT SCH ×2 (09:55→22:00)
[2020-06-27 12:00] VITALS: BP 131/74
[2020-06-27] MEDS: DOCUSATE SODIUM 250MG CAPSULE PO PRN (14:47)
[2020-06-27] MEDS: TRAMADOL 50MG TABLET PO PRN (14:48)
[2020-06-27 16:00] VITALS: BP 126/66
[2020-06-27] MEDS: VANCOMYCIN 1250MG in DEXTROSE 5% WATER 250ML IV SCH (18:00)
[2020-06-27] MEDS: LEVOFLOXACIN 500MG TABLET PO SCH (19:39)
[2020-06-27 20:00] VITALS: BP 118/62
[2020-06-28] VITALS: BP 107/52
[2020-06-28] MEDS: BLOOD SUGAR DIAGNOSTIC STRIP TEST SCH ×4 (07:03→21:35)
[2020-06-28 08:30] VITALS: BP 106/47
[2020-06-28] MEDS: ENOXAPARIN 40MG/0.4ML SYR SUBCUT SCH ×2 (09:00→21:00)
[2020-06-28] MEDS: DOCUSATE SODIUM 250MG CAPSULE PO PRN (09:23)
[2020-06-28] MEDS: INSULIN GLARGINE UD 100 UNITS/ML SYR SUBCUT SCH ×2 (09:23→21:36)
[2020-06-28] MEDS: MULTIVITAMINS,THER W-MINERALS TABLET PO SCH (09:23)
[2020-06-28] MEDS: INSULIN LISPRO 100 UNITS/ML SUBCUT SCH ×4 (09:23→21:36)
[2020-06-28] MEDS: TRAMADOL 50MG TABLET PO PRN (11:47)
[2020-06-28] MEDS: LEVOFLOXACIN 500MG TABLET PO SCH (11:47)
[2020-06-28 12:00] VITALS: BP 113/45
[2020-06-28 16:00] VITALS: BP 123/64
[2020-06-28 20:00] VITALS: BP 117/55
[2020-06-29 04:00] VITALS: BP 109/50
[2020-06-29] MEDS: BLOOD SUGAR DIAGNOSTIC STRIP TEST SCH ×4 (06:36→21:00)
[2020-06-29] MEDS: INSULIN LISPRO 100 UNITS/ML SUBCUT SCH ×4 (07:50→21:00)
[2020-06-29 08:16] VITALS: BP 107/39
[2020-06-29] MEDS: ENOXAPARIN 40MG/0.4ML SYR SUBCUT SCH ×2 (09:45→21:00)
[2020-06-29] MEDS: MULTIVITAMINS,THER W-MINERALS TABLET PO SCH (09:45)
[2020-06-29] MEDS: LEVOFLOXACIN 500MG TABLET PO SCH (12:37)
[2020-06-29 12:39] VITALS: BP 112/55
[2020-06-29] MEDS: INSULIN GLARGINE UD 100 UNITS/ML SYR SUBCUT SCH ×2 (12:39→21:37)
[2020-06-29 16:22] VITALS: BP 117/43
[2020-06-29 20:00] VITALS: BP 115/57
[2020-06-30] VITALS: BP 118/60
[2020-06-30 04:00] VITALS: BP 116/61
[2020-06-30] MEDS: BLOOD SUGAR DIAGNOSTIC STRIP TEST SCH ×5 (07:20→21:00)
[2020-06-30] MEDS: INSULIN LISPRO 100 UNITS/ML SUBCUT SCH ×4 (07:50→21:00)
[2020-06-30 08:15] VITALS: BP 115/68
[2020-06-30] MEDS: ENOXAPARIN 40MG/0.4ML SYR SUBCUT SCH ×2 (09:00→21:00)
[2020-06-30] MEDS: MULTIVITAMINS,THER W-MINERALS TABLET PO SCH (09:04)
[2020-06-30] MEDS: INSULIN GLARGINE UD 100 UNITS/ML SYR SUBCUT SCH ×2 (09:05→22:00)
[2020-06-30 12:06] VITALS: BP 108/55
[2020-06-30] MEDS: LEVOFLOXACIN 500MG TABLET PO SCH (12:12)
[2020-06-30] MEDS: AMPICILLIN SOD/SULBACTAM NA 3 G in SODIUM CHLORIDE 0.9% 100 ML IV SCH ×2 (14:00→20:00)
[2020-06-30 16:19] VITALS: BP 127/61
[2020-06-30 20:00] VITALS: BP 117/57
[2020-07-01] MEDS: TRAMADOL 50MG TABLET PO PRN ×2 (01:50→19:35)
[2020-07-01] MEDS: AMPICILLIN SOD/SULBACTAM NA 3 G in SODIUM CHLORIDE 0.9% 100 ML IV SCH ×3 (01:50→15:23)
[2020-07-01] MEDS: BLOOD SUGAR DIAGNOSTIC STRIP TEST SCH ×4 (06:38→21:00)
[2020-07-01] MEDS: INSULIN LISPRO 100 UNITS/ML SUBCUT SCH ×4 (07:50→21:00)
[2020-07-01] MEDS: ENOXAPARIN 40MG/0.4ML SYR SUBCUT SCH ×2 (08:37→21:00)
[2020-07-01] MEDS: INSULIN GLARGINE UD 100 UNITS/ML SYR SUBCUT SCH ×2 (08:37→21:59)
[2020-07-01] MEDS: MULTIVITAMINS,THER W-MINERALS TABLET PO SCH (08:40)
[2020-07-01 08:44] VITALS: BP 122/64
[2020-07-01 12:00] VITALS: BP 108/72
[2020-07-01] MEDS: LEVOFLOXACIN 250MG TABLET PO SCH (12:49)
[2020-07-01] MEDS ORDERED: LIDOCAINE HCL 1% 20ML VIAL (Pyxis) INJ ONE (13:50)
[2020-07-01] MEDS ORDERED: SODIUM BICARBONATE 4% (2.4MEQ) 5ML VIAL IV ONE (13:51)
[2020-07-01 16:00] VITALS: BP 105/64
[2020-07-01 20:40] VITALS: BP 106/56
[2020-07-02] MEDS: AMPICILLIN SOD/SULBACTAM NA 3 G in SODIUM CHLORIDE 0.9% 100 ML IV SCH ×4 (02:57→21:55)
[2020-07-02] MEDS: TRAMADOL 50MG TABLET PO PRN ×2 (04:42→18:37)
[2020-07-02] MEDS: BLOOD SUGAR DIAGNOSTIC STRIP TEST SCH ×4 (06:26→21:00)
[2020-07-02] MEDS: INSULIN LISPRO 100 UNITS/ML SUBCUT SCH ×4 (07:50→21:00)
[2020-07-02 08:00] VITALS: BP 115/69
[2020-07-02] MEDS: ENOXAPARIN 40MG/0.4ML SYR SUBCUT SCH ×2 (09:00→21:00)
[2020-07-02] MEDS: MULTIVITAMINS,THER W-MINERALS TABLET PO SCH (09:42)
[2020-07-02] MEDS: INSULIN GLARGINE UD 100 UNITS/ML SYR SUBCUT SCH ×2 (10:00→21:59)
[2020-07-02 12:00] VITALS: BP 114/59
[2020-07-02] MEDS: LEVOFLOXACIN 250MG TABLET PO SCH (14:02)
[2020-07-02 16:00] VITALS: BP 139/66
[2020-07-02 20:00] VITALS: BP 118/70
[2020-07-03] VITALS (8 sets, daily range): BP systolic 99–135; BP diastolic 42–69
[2020-07-03] MEDS: AMPICILLIN SOD/SULBACTAM NA 3 G in SODIUM CHLORIDE 0.9% 100 ML IV SCH ×4 (03:44→20:00)
[2020-07-03] MEDS: BLOOD SUGAR DIAGNOSTIC STRIP TEST SCH ×4 (05:58→21:00)
[2020-07-03] MEDS: INSULIN LISPRO 100 UNITS/ML SUBCUT SCH ×4 (07:50→21:00)
[2020-07-03] MEDS: ENOXAPARIN 40MG/0.4ML SYR SUBCUT SCH ×2 (09:00→21:00)
[2020-07-03] MEDS: MULTIVITAMINS,THER W-MINERALS TABLET PO SCH (09:03)
[2020-07-03] MEDS: INSULIN GLARGINE UD 100 UNITS/ML SYR SUBCUT SCH ×2 (10:00→22:00)
[2020-07-03] MEDS: LEVOFLOXACIN 250MG TABLET PO SCH (11:23)
[2020-07-03] MEDS: TRAMADOL 50MG TABLET PO PRN (20:03)
[2020-07-04] VITALS: BP 123/63
[2020-07-04] MEDS: AMPICILLIN SOD/SULBACTAM NA 3 G in SODIUM CHLORIDE 0.9% 100 ML IV SCH ×2 (01:04→08:35)
[2020-07-04 04:00] VITALS: BP 111/78
[2020-07-04] MEDS: TRAMADOL 50MG TABLET PO PRN (05:13)
[2020-07-04] MEDS: INSULIN LISPRO 100 UNITS/ML SUBCUT SCH (06:50)
[2020-07-04] MEDS: BLOOD SUGAR DIAGNOSTIC STRIP TEST SCH (06:50)
[2020-07-04 08:00] VITALS: BP 116/62
[2020-07-04] MEDS: INSULIN GLARGINE UD 100 UNITS/ML SYR SUBCUT SCH (08:36)
[2020-07-04] MEDS: LEVOFLOXACIN 250MG TABLET PO SCH ×2 (08:36→10:42)
[2020-07-04] MEDS: MULTIVITAMINS,THER W-MINERALS TABLET PO SCH (08:36)
[2020-07-04] MEDS: ENOXAPARIN 40MG/0.4ML SYR SUBCUT SCH (08:36)
== END 2020-07-04 11:27 | DRG 871 ==
LOC: ER 16:59 → 6WST 21:47 → ENRESERV 06-22 08:22
PROVIDERS: ADMIT Internal Medicine; ATTEND Internal Medicine
PROC: 02HV33Z Insertion of Infusion Device into Superior Vena Cava, Percutaneous Approach (ICD-10-PCS; principal; 2020-07-01)
PROC: B548ZZA Ultrasonography of Superior Vena Cava, Guidance (ICD-10-PCS; 2020-07-01)
DX: A41.9 Sepsis, unspecified organism (principal); N17.0 Acute kidney failure with tubular necrosis; L03.115 Cellulitis of right lower limb; E44.0 Moderate protein-calorie malnutrition; Z68.43 Body mass index [BMI] 50.0-59.9, adult; L03.116 Cellulitis of left lower limb; E11.65 Type 2 diabetes mellitus with hyperglycemia; D64.9 Anemia, unspecified; I50.9 Heart failure, unspecified; I11.0 Hypertensive heart disease with heart failure; E66.01 Morbid (severe) obesity due to excess calories; I87.2 Venous insufficiency (chronic) (peripheral); I87.8 Other specified disorders of veins; R77.8 Other specified abnormalities of plasma proteins; S91.301A Unspecified open wound, right foot, initial encounter; X58.XXXA Exposure to other specified factors, initial encounter; L89.326 Pressure-induced deep tissue damage of left buttock; L89.316 Pressure-induced deep tissue damage of right buttock; Z20.822 Contact with and (suspected) exposure to COVID-19; Y93.89 Activity, other specified; Z79.2 Long term (current) use of antibiotics; Z79.899 Other long term (current) drug therapy; Y92.89 Other specified places as the place of occurrence of the external cause; Y99.8 Other external cause status
CPT/HCPCS: 36415; 71045; 73630; 76937; 80048; 80053; 80202; 80305; 81003; 82040; 82962; 83880; 84134; 84484; 85025; 87070; 87075; 87077; 87186; 87426; 93005; 97110; 97162; 97166; 97530; 97535; 99285; A6261; C1725; C1893; J0295; J0692; J1650; J1815; J2270; J3370; J3490; J7040; J7050; J7060

== ENCOUNTER 2020-09-21 10:56 | Inpatient (IN) | payer MEDICARE, BC ==
[~2020-09-21] VITALS: Ht 170.2 cm; Wt 159.7 kg
[2020-09-21 12:07] LABS: BASOPHILS % 0.6 % (0.0-2.0); EOSINOPHILS % 1.7 % (0.0-5.0); HEMATOCRIT. 34.9 % (42.0-52.0); HEMOGLOBIN. 11.4 g/dL (14.0-18.0); LYMPHOCYTES % 18.4 % (20.0-50.0); MEAN CORPUSCULAR HEMOGLOBIN 28.5 pg (28.0-32.0); MEAN CORPUSCULAR VOLUME 87.4 fL (80.0-94.0); MEAN PLATELET VOLUME 8.6 fl (7.4-10.4); NEUTROPHILS % 73.3 % (40.0-76.0); PLATELET 318 x1000/uL (130-400); RED BLOOD CELL COUNT 3.99 mill/uL (4.7-6.1); RED CELL DISTRIBUTION WIDTH 13.9 % (11.6-14.6)
[2020-09-21 12:09] LABS: CHLORIDE 103 mEq/L (98-107)
[2020-09-21] MEDS ORDERED: DEXTROSE 50% WATER 50ML SYRINGE IV PRN (14:30)
[2020-09-21] MEDS ORDERED: ONDANSETRON HCL 4MG/2ML INJ IV PRN (14:30)
[2020-09-21] MEDS: ACETAMINOPHEN 325MG TABLET PO PRN (17:22)
[2020-09-21] MEDS: BLOOD SUGAR DIAGNOSTIC STRIP TEST SCH ×2 (17:32→21:52)
[2020-09-21] MEDS: INSULIN LISPRO 100 UNITS/ML SUBCUT SCH ×2 (17:45→21:55)
[2020-09-21 20:00] VITALS: BP 118/58
[2020-09-21 20:20] VITALS: BP 135/55
[2020-09-21] MEDS: ENOXAPARIN 40MG/0.4ML SYR SUBCUT SCH (21:48)
[2020-09-21] MEDS ORDERED: FERR256T PO (22:23)
[2020-09-22] VITALS: BP 120/60
[2020-09-22] MEDS: BLOOD SUGAR DIAGNOSTIC STRIP TEST SCH ×4 (07:20→21:00)
[2020-09-22] MEDS: INSULIN LISPRO 100 UNITS/ML SUBCUT SCH ×4 (07:50→21:00)
[2020-09-22] MEDS: ENOXAPARIN 40MG/0.4ML SYR SUBCUT SCH ×2 (09:30→21:30)
[2020-09-22 12:00] VITALS: BP 116/54
[2020-09-22] MEDS: ACETAMINOPHEN 325MG TABLET PO PRN (15:58)
[2020-09-22 16:00] VITALS: BP 100/52
[2020-09-22 20:00] VITALS: BP_SYST 105; BP_SYST 119; BP_DIAS 51; BP_DIAS 67
[2020-09-23] MEDS: BLOOD SUGAR DIAGNOSTIC STRIP TEST SCH ×4 (07:20→21:00)
[2020-09-23] MEDS: INSULIN LISPRO 100 UNITS/ML SUBCUT SCH ×4 (07:35→21:00)
[2020-09-23 08:00] VITALS: BP 128/70
[2020-09-23] MEDS: ENOXAPARIN 40MG/0.4ML SYR SUBCUT SCH ×2 (09:30→21:30)
[2020-09-23 12:00] VITALS: BP 105/54
[2020-09-23 16:00] VITALS: BP 146/74
[2020-09-23 20:00] VITALS: BP 97/46
[2020-09-24 04:00] VITALS: BP 105/48
[2020-09-24] MEDS: HYDROCODONE/ACETAMINOPHEN 5/325MG TABLET PO PRN (05:53)
[2020-09-24] MEDS: INSULIN LISPRO 100 UNITS/ML SUBCUT SCH ×4 (07:48→21:00)
[2020-09-24] MEDS: BLOOD SUGAR DIAGNOSTIC STRIP TEST SCH ×4 (07:48→21:00)
[2020-09-24 08:00] VITALS: BP 106/58
[2020-09-24] MEDS: ENOXAPARIN 40MG/0.4ML SYR SUBCUT SCH ×2 (09:30→21:30)
[2020-09-24 12:00] VITALS: BP 109/50
[2020-09-24] MEDS: ACETAMINOPHEN 325MG TABLET PO PRN (16:52)
[2020-09-24 20:00] VITALS: BP 96/45
[2020-09-25] MEDS: BLOOD SUGAR DIAGNOSTIC STRIP TEST SCH ×4 (07:20→21:51)
[2020-09-25] MEDS: INSULIN LISPRO 100 UNITS/ML SUBCUT SCH ×4 (07:50→21:50)
[2020-09-25 08:00] VITALS: BP 119/56
[2020-09-25] MEDS: ENOXAPARIN 40MG/0.4ML SYR SUBCUT SCH ×2 (10:07→21:50)
[2020-09-25] MEDS: HYDROCODONE/ACETAMINOPHEN 5/325MG TABLET PO PRN ×2 (10:08→21:51)
[2020-09-25 12:00] VITALS: BP 114/60
[2020-09-25 14:30] VITALS: BP 135/86
[2020-09-25 16:00] VITALS: BP 81/54
[2020-09-25 20:00] VITALS: BP 107/56
[2020-09-26] VITALS: BP 111/57
[2020-09-26 04:00] VITALS: BP 106/60
[2020-09-26] MEDS: HYDROCODONE/ACETAMINOPHEN 5/325MG TABLET PO PRN ×2 (04:55→17:01)
[2020-09-26] MEDS: BLOOD SUGAR DIAGNOSTIC STRIP TEST SCH ×4 (07:20→21:00)
[2020-09-26] MEDS: INSULIN LISPRO 100 UNITS/ML SUBCUT SCH ×4 (07:50→21:00)
[2020-09-26 08:00] VITALS: BP 116/65
[2020-09-26] MEDS: ENOXAPARIN 40MG/0.4ML SYR SUBCUT SCH ×2 (09:07→21:30)
[2020-09-26 12:00] VITALS: BP 106/57
[2020-09-26 16:00] VITALS: BP 110/55
[2020-09-26 20:00] VITALS: BP 116/68
[2020-09-27 04:00] VITALS: BP_SYST 100; BP_SYST 132; BP_DIAS 56; BP_DIAS 64
[2020-09-27] MEDS: BLOOD SUGAR DIAGNOSTIC STRIP TEST SCH ×4 (05:52→21:00)
[2020-09-27] MEDS: INSULIN LISPRO 100 UNITS/ML SUBCUT SCH ×4 (07:50→21:00)
[2020-09-27 08:00] VITALS: BP 124/67
[2020-09-27] MEDS: ENOXAPARIN 40MG/0.4ML SYR SUBCUT SCH ×2 (09:49→21:01)
[2020-09-27 12:00] VITALS: BP 117/62
[2020-09-27 16:00] VITALS: BP 112/61
[2020-09-27 20:00] VITALS: BP 115/56
[2020-09-27] MEDS: HYDROCODONE/ACETAMINOPHEN 5/325MG TABLET PO PRN (22:51)
[2020-09-28] MEDS: BLOOD SUGAR DIAGNOSTIC STRIP TEST SCH ×4 (05:43→21:35)
[2020-09-28] MEDS: INSULIN LISPRO 100 UNITS/ML SUBCUT SCH ×4 (05:43→21:46)
[2020-09-28] MEDS: ENOXAPARIN 40MG/0.4ML SYR SUBCUT SCH ×2 (08:45→21:30)
[2020-09-28 16:00] VITALS: BP 124/63
[2020-09-28] MEDS: HYDROCODONE/ACETAMINOPHEN 5/325MG TABLET PO PRN (16:34)
[2020-09-28 20:00] VITALS: BP 112/51
[2020-09-29] VITALS: BP 99/52
[2020-09-29] MEDS: BLOOD SUGAR DIAGNOSTIC STRIP TEST SCH ×4 (06:45→21:00)
[2020-09-29] MEDS: INSULIN LISPRO 100 UNITS/ML SUBCUT SCH ×4 (07:39→21:00)
[2020-09-29] MEDS: ENOXAPARIN 40MG/0.4ML SYR SUBCUT SCH ×2 (09:12→21:30)
[2020-09-29 12:00] VITALS: BP 100/58
[2020-09-29 16:00] VITALS: BP 101/57
[2020-09-29] MEDS ORDERED: GLYB5TAB7 PO (17:21)
[2020-09-29] MEDS ORDERED: TRAM50TA PO (17:21)
[2020-09-29] MEDS ORDERED: METF-416 MT (17:21)
[2020-09-29 20:00] VITALS: BP 104/48
[2020-09-29 23:56] VITALS: BP 118/58
[2020-09-30] MEDS: HYDROCODONE/ACETAMINOPHEN 5/325MG TABLET PO PRN ×2 (00:56→09:32)
[2020-09-30 04:00] VITALS: BP 98/67
[2020-09-30 08:00] VITALS: BP 103/55
[2020-09-30] MEDS: BLOOD SUGAR DIAGNOSTIC STRIP TEST SCH ×4 (09:30→21:00)
[2020-09-30] MEDS: ENOXAPARIN 40MG/0.4ML SYR SUBCUT SCH ×2 (09:31→22:46)
[2020-09-30] MEDS: INSULIN LISPRO 100 UNITS/ML SUBCUT SCH ×4 (10:08→21:00)
[2020-09-30 12:00] VITALS: BP 92/54
[2020-09-30 16:00] VITALS: BP 100/59
[2020-09-30 20:00] VITALS: BP 118/64
[2020-10-01] MEDS: HYDROCODONE/ACETAMINOPHEN 5/325MG TABLET PO PRN (00:07)
[2020-10-01] MEDS: DOCUSATE SODIUM SUGAR FREE 100MG/10ML UDC PO SCH ×2 (00:26→18:50)
[2020-10-01] MEDS: BLOOD SUGAR DIAGNOSTIC STRIP TEST SCH ×4 (06:38→21:00)
[2020-10-01] MEDS: INSULIN LISPRO 100 UNITS/ML SUBCUT SCH ×4 (07:50→21:00)
[2020-10-01] MEDS ORDERED: SORBITOL 70% SOLN 30ML PO NR (09:15)
[2020-10-01] MEDS: ENOXAPARIN 40MG/0.4ML SYR SUBCUT SCH ×2 (09:32→21:30)
[2020-10-01] MEDS ORDERED: NA PHOS,M-B/NA PHOS,DI-BA ENEMA 118ML PR SCH (12:00)
[2020-10-01 16:00] VITALS: BP 109/61
[2020-10-01 20:00] VITALS: BP 122/68
[2020-10-02] MEDS: BLOOD SUGAR DIAGNOSTIC STRIP TEST SCH ×4 (06:47→21:14)
[2020-10-02] MEDS: HYDROCODONE/ACETAMINOPHEN 5/325MG TABLET PO PRN (06:48)
[2020-10-02] MEDS: INSULIN LISPRO 100 UNITS/ML SUBCUT SCH ×4 (07:50→21:35)
[2020-10-02 08:00] VITALS: BP 98/55
[2020-10-02] MEDS: ENOXAPARIN 40MG/0.4ML SYR SUBCUT SCH ×2 (09:30→21:30)
[2020-10-02] MEDS: DOCUSATE SODIUM SUGAR FREE 100MG/10ML UDC PO SCH ×2 (09:34→17:29)
[2020-10-02 10:14] VITALS: BP_SYST 106; BP_SYST 98; BP_DIAS 55; BP_DIAS 57
[2020-10-02 12:00] VITALS: BP 97/56
[2020-10-02 16:00] VITALS: BP 102/53
[2020-10-02 20:00] VITALS: BP 111/58
[2020-10-03] VITALS: BP 100/56
[2020-10-03] MEDS: BLOOD SUGAR DIAGNOSTIC STRIP TEST SCH ×2 (06:26→12:39)
[2020-10-03] MEDS: INSULIN LISPRO 100 UNITS/ML SUBCUT SCH ×2 (06:51→13:23)
[2020-10-03 08:00] VITALS: BP 116/58
[2020-10-03] MEDS: DOCUSATE SODIUM SUGAR FREE 100MG/10ML UDC PO SCH (09:00)
[2020-10-03] MEDS: ENOXAPARIN 40MG/0.4ML SYR SUBCUT SCH (09:08)
[2020-10-03 12:00] VITALS: BP 106/57
== END 2020-10-03 16:00 | disposition home health service (06) | DRG 637 ==
LOC: ER 11:23 → 6EST 12:41 → ENRESERV 14:08 → CANRESERV 14:08 → EDBEDREQSVC 14:38 → ENRESERV 14:42 → CANRESERV 14:42 → ENRESERV 19:20
PROVIDERS: ADMIT Internal Medicine; ATTEND Internal Medicine
DX: E11.621 Type 2 diabetes mellitus with foot ulcer (principal); L89.153 Pressure ulcer of sacral region, stage 3; E44.0 Moderate protein-calorie malnutrition; Z68.43 Body mass index [BMI] 50.0-59.9, adult; L97.518 Non-pressure chronic ulcer of other part of right foot with other specified severity; N17.9 Acute kidney failure, unspecified; I11.0 Hypertensive heart disease with heart failure; I87.8 Other specified disorders of veins; I50.9 Heart failure, unspecified; E66.01 Morbid (severe) obesity due to excess calories; I87.2 Venous insufficiency (chronic) (peripheral); D64.9 Anemia, unspecified; Z60.2 Problems related to living alone; M10.9 Gout, unspecified; R26.89 Other abnormalities of gait and mobility; Z79.899 Other long term (current) drug therapy; Z71.3 Dietary counseling and surveillance; R53.81 Other malaise
CPT/HCPCS: 36415; 71045; 80053; 82962; 83880; 84484; 85025; 93005; 93970; 97110; 97162; 97166; 97530; 97535; 99285; A4565; A6261; J1650; J1815; J2405

== ENCOUNTER 2020-10-28 04:32 | Emergency (ER) | payer MEDICARE, BC ==
[~2020-10-28] VITALS: Ht 170.2 cm; Wt 159.0 kg
[~2020-10-28 04:32] MED LIST changes: +FERR256T PO; +METF-416 MT; -SULF-288 MT
[2020-10-28] MEDS ORDERED: TRAMADOL 50MG TABLET PO ONE (05:15)
[2020-10-28] MEDS ORDERED: TRAM100C3 PO (08:23)
[2020-10-28 10:17] VITALS: BP 114/96
== END 2020-10-28 10:53 | disposition home or self-care (01) ==
LOC: ER 04:32
DX: M17.12 Unilateral primary osteoarthritis, left knee (principal); M79.662 Pain in left lower leg; I11.0 Hypertensive heart disease with heart failure; I50.9 Heart failure, unspecified; E11.9 Type 2 diabetes mellitus without complications; Z79.4 Long term (current) use of insulin; Z79.899 Other long term (current) drug therapy
CPT/HCPCS: 73560; 73590; 99284

== ENCOUNTER 2020-12-26 15:08 | Inpatient (IN) | payer MEDICARE, BC ==
[~2020-12-26] VITALS: Ht 205.7 cm; Wt 149.7 kg
[~2020-12-26 15:08] MED LIST changes: +AMOX1TAB16 PO; -GLYB5TAB7 PO; -METF100092 PO; +POLY119P2 MT; +SULF-288 MT
[2020-12-26] MEDS ORDERED: IBUPROFEN 600MG TABLET PO ONE (16:45)
[2020-12-26] MEDS ORDERED: MORPHINE SULFATE 4 MG/ML CPJ (NOT FOR IM USE) IV STA (17:10)
[2020-12-26] MEDS ORDERED: ONDANSETRON HCL 4MG/2ML INJ IV STA (17:10)
[2020-12-26] MEDS ORDERED: VANCOMYCIN 1 G PREMIX 200 ML IV ONE (17:15)
[2020-12-26] MEDS ORDERED: PIPERACILLIN/TAZ 3.375G PREMIX 50 ML IV ONE (17:15)
[2020-12-26] MEDS ORDERED: FUROSEMIDE 40MG/4ML VIAL IV ONE (18:15)
[2020-12-26] MEDS ORDERED: NITROGLYCERIN OINT 1GM/INCH UDPKT TD ONE (18:15)
[2020-12-26] MEDS ORDERED: ASPIRIN 81MG TABLET PO ONE (18:15)
[2020-12-26 19:20] LABS: BASOPHILS % 0.5 % (0.0-2.0); EOSINOPHILS % 2.8 % (0.0-5.0); HEMATOCRIT. 38.1 % (42.0-52.0); HEMOGLOBIN. 12.4 g/dL (14.0-18.0); LYMPHOCYTES % 18.6 % (20.0-50.0); MEAN CORPUSCULAR HEMOGLOBIN 26.7 pg (28.0-32.0); MEAN CORPUSCULAR VOLUME 82.3 fL (80.0-94.0); MEAN PLATELET VOLUME 8.9 fl (7.4-10.4); MONOCYTES % 7.9 % (2.0-8.0); NEUTROPHILS % 70.2 % (40.0-76.0); PLATELET 352 x1000/uL (130-400); RED BLOOD CELL COUNT 4.63 mill/uL (4.7-6.1); RED CELL DISTRIBUTION WIDTH 15.3 % (11.6-14.6)
[2020-12-26 19:23] LABS: CHLORIDE 100 mEq/L (98-107)
[2020-12-26 19:30] LABS: INR 1.2; PARTIAL THROMBOPLASTIN TIME 34.1 sec (23.4-31.0); PROTHROMBIN TIME 12.4 sec (9.6-11.0)
[2020-12-26] MEDS ORDERED: ENOXAPARIN 150MG/ML SYR SUBCUT ONE (20:00)
[2020-12-26 23:00] LABS: CLARITY URINE CLEAR (CLEAR); COLOR URINE YELLOW (YELLOW); KETONES URINE NEGATIVE (NEGATIVE); LEUKOCYTE ESTERASE URINE NEGATIVE (NEGATIVE); NITRITE URINE NEGATIVE (NEGATIVE); OCCULT BLOOD URINE NEGATIVE (NEGATIVE); PH URINE 5.5 (4.5-8.0); PROTEIN URINE NEGATIVE (NEGATIVE); SPECIFIC GRAVITY URINE 1.012 (1.005-1.030); UROBILINOGEN URINE 0.2 E.U./dL (0.2-1.0)
[2020-12-26 23:15] VITALS: BP 110/65
[2020-12-27] VITALS: BP 105/60
[2020-12-27] MEDS ORDERED: DEXTROSE 50% WATER 50ML SYRINGE IV PRN (01:00)
[2020-12-27] MEDS ORDERED: NALOXONE HCL 0.4MG/ML VIAL IV PRN (01:45)
[2020-12-27] MEDS: BLOOD SUGAR DIAGNOSTIC STRIP TEST SCH ×4 (06:40→21:34)
[2020-12-27] MEDS: FERROUS SULFATE 325MG TABLET PO SCH ×3 (06:47→16:53)
[2020-12-27] MEDS: METFORMIN HCL 500MG TABLET PO SCH ×2 (06:47→16:53)
[2020-12-27] MEDS: INSULIN LISPRO 100 UNITS/ML SUBCUT SCH ×4 (06:48→21:00)
[2020-12-27 08:00] VITALS: BP 123/73
[2020-12-27] MEDS: ENOXAPARIN 150MG/ML SYR SUBCUT SCH ×2 (08:26→21:36)
[2020-12-27] MEDS: GABAPENTIN 300MG CAPSULE PO SCH ×2 (08:26→21:35)
[2020-12-27] MEDS: ALLOPURINOL 100 MG TABLET PO SCH (08:26)
[2020-12-27] MEDS ORDERED: LISINOPRIL 20MG TABLET PO SCH (09:00)
[2020-12-27] MEDS ORDERED: FUROSEMIDE 40MG TABLET PO SCH (09:00)
[2020-12-27] MEDS ORDERED: CARVEDILOL 3.125 MG TABLET PO SCH (09:00)
[2020-12-27] MEDS ORDERED: PNEUMOCOCCAL 23-VAL P-SAC VAC 0.5 ML IM ONE (10:00)
[2020-12-27 12:00] VITALS: BP 119/40
[2020-12-27] MEDS: FUROSEMIDE 40MG/4ML VIAL IVP SCH (12:49)
[2020-12-27] MEDS: TRAMADOL 50MG TABLET PO PRN (12:53)
[2020-12-27 16:33] VITALS: BP 101/57
[2020-12-27 20:00] VITALS: BP 99/48
[2020-12-28 00:11] VITALS: BP 93/50
[2020-12-28] MEDS: TRAMADOL 50MG TABLET PO PRN (03:36)
[2020-12-28 03:41] VITALS: BP 94/49
[2020-12-28] MEDS: BLOOD SUGAR DIAGNOSTIC STRIP TEST SCH ×4 (06:39→21:31)
[2020-12-28] MEDS: INSULIN LISPRO 100 UNITS/ML SUBCUT SCH ×4 (06:40→21:00)
[2020-12-28 08:00] VITALS: BP 96/52
[2020-12-28] MEDS: METFORMIN HCL 500MG TABLET PO SCH ×2 (08:58→17:34)
[2020-12-28] MEDS: GABAPENTIN 300MG CAPSULE PO SCH ×2 (08:58→21:00)
[2020-12-28] MEDS: FERROUS SULFATE 325MG TABLET PO SCH ×3 (08:58→17:34)
[2020-12-28] MEDS: ALLOPURINOL 100 MG TABLET PO SCH (08:58)
[2020-12-28] MEDS: FUROSEMIDE 40MG/4ML VIAL IVP SCH (08:59)
[2020-12-28] MEDS: ENOXAPARIN 150MG/ML SYR SUBCUT SCH ×2 (09:00→22:14)
[2020-12-28] MEDS: HYDROCODONE/ACETAMINOPHEN 5/325MG TABLET PO PRN ×2 (10:06→23:25)
[2020-12-28 12:00] VITALS: BP 90/51
[2020-12-28 16:00] VITALS: BP 105/57
[2020-12-28 20:00] VITALS: BP 99/51
[2020-12-29] MEDS ORDERED: BISACODYL 10MG SUPP PR PRN ×2 (01:00→12:00)
[2020-12-29 04:00] VITALS: BP 93/61
[2020-12-29] MEDS: BLOOD SUGAR DIAGNOSTIC STRIP TEST SCH ×4 (06:05→21:00)
[2020-12-29] MEDS: INSULIN LISPRO 100 UNITS/ML SUBCUT SCH ×4 (07:10→21:00)
[2020-12-29 08:00] VITALS: BP 110/65
[2020-12-29] MEDS: FERROUS SULFATE 325MG TABLET PO SCH ×3 (09:58→17:11)
[2020-12-29] MEDS: GABAPENTIN 300MG CAPSULE PO SCH ×2 (09:58→21:04)
[2020-12-29] MEDS: FUROSEMIDE 40MG/4ML VIAL IVP SCH (09:58)
[2020-12-29] MEDS: ENOXAPARIN 150MG/ML SYR SUBCUT SCH ×2 (09:58→21:05)
[2020-12-29] MEDS: METFORMIN HCL 500MG TABLET PO SCH ×2 (09:58→17:11)
[2020-12-29] MEDS: ALLOPURINOL 100 MG TABLET PO SCH (09:58)
[2020-12-29] MEDS: HYDROCODONE/ACETAMINOPHEN 5/325MG TABLET PO PRN ×2 (11:46→22:51)
[2020-12-29 12:00] VITALS: BP 143/83
[2020-12-29] MEDS ORDERED: MINERAL OIL 30ML BOTTLE PO NR (14:00)
[2020-12-29] MEDS: TRAMADOL 50MG TABLET PO PRN (15:16)
[2020-12-29 16:00] VITALS: BP 124/66
[2020-12-29] MEDS: DOCUSATE SODIUM 100MG CAPSULE PO SCH (17:11)
[2020-12-30] MEDS: FERROUS SULFATE 325MG TABLET PO SCH ×3 (06:13→17:18)
[2020-12-30] MEDS: METFORMIN HCL 500MG TABLET PO SCH ×2 (06:13→16:12)
[2020-12-30] MEDS: INSULIN LISPRO 100 UNITS/ML SUBCUT SCH ×4 (06:19→21:00)
[2020-12-30] MEDS: BLOOD SUGAR DIAGNOSTIC STRIP TEST SCH ×4 (06:19→20:45)
[2020-12-30 08:00] VITALS: BP 136/75
[2020-12-30] MEDS: FUROSEMIDE 40MG/4ML VIAL IVP SCH (08:33)
[2020-12-30] MEDS: GABAPENTIN 300MG CAPSULE PO SCH ×2 (08:33→21:00)
[2020-12-30] MEDS: ENOXAPARIN 150MG/ML SYR SUBCUT SCH ×2 (08:33→21:00)
[2020-12-30] MEDS: DOCUSATE SODIUM 100MG CAPSULE PO SCH ×2 (08:33→16:12)
[2020-12-30] MEDS: ALLOPURINOL 100 MG TABLET PO SCH (08:33)
[2020-12-30] MEDS: HYDROCODONE/ACETAMINOPHEN 5/325MG TABLET PO PRN (11:35)
[2020-12-30 12:00] VITALS: BP 117/68
[2020-12-30] MEDS ORDERED: POLY119P2 MT (15:39)
[2020-12-30] MEDS ORDERED: GABA-290 PO (15:39)
[2020-12-30] MEDS ORDERED: ALLO100T PO (15:39)
[2020-12-30] MEDS ORDERED: TRAM50TA PO (15:39)
[2020-12-30] MEDS ORDERED: METF-416 MT (15:39)
[2020-12-30] MEDS: TRAMADOL 50MG TABLET PO PRN (16:12)
[2020-12-31] VITALS: BP 128/72
[2020-12-31] MEDS: HYDROCODONE/ACETAMINOPHEN 5/325MG TABLET PO PRN (03:27)
[2020-12-31 04:00] VITALS: BP 113/76
[2020-12-31] MEDS: BLOOD SUGAR DIAGNOSTIC STRIP TEST SCH ×4 (06:07→21:00)
[2020-12-31] MEDS: METFORMIN HCL 500MG TABLET PO SCH ×2 (06:15→17:10)
[2020-12-31] MEDS: INSULIN LISPRO 100 UNITS/ML SUBCUT SCH ×4 (06:16→21:00)
[2020-12-31] MEDS: FERROUS SULFATE 325MG TABLET PO SCH ×3 (06:16→17:10)
[2020-12-31 08:00] VITALS: BP 120/73
[2020-12-31] MEDS: ALLOPURINOL 100 MG TABLET PO SCH (09:27)
[2020-12-31] MEDS: DOCUSATE SODIUM 100MG CAPSULE PO SCH ×2 (09:27→17:00)
[2020-12-31] MEDS: GABAPENTIN 300MG CAPSULE PO SCH ×2 (09:27→21:00)
[2020-12-31] MEDS: ENOXAPARIN 150MG/ML SYR SUBCUT SCH ×2 (09:28→21:00)
[2020-12-31] MEDS: FUROSEMIDE 40MG/4ML VIAL IVP SCH (09:33)
[2020-12-31 13:00] VITALS: BP 123/65
[2020-12-31] MEDS: TRAMADOL 50MG TABLET PO PRN (15:32)
[2020-12-31 16:00] VITALS: BP 123/65
[2020-12-31] MEDS ORDERED: XAR15 MT (16:21)
[2020-12-31] MEDS ORDERED: FURO-151 MT (16:22)
[2020-12-31 20:00] VITALS: BP 136/78
[2021-01-01] VITALS: BP 111/70
[2021-01-01] MEDS: FERROUS SULFATE 325MG TABLET PO SCH ×3 (06:45→17:36)
[2021-01-01] MEDS: BLOOD SUGAR DIAGNOSTIC STRIP TEST SCH ×4 (06:45→21:00)
[2021-01-01] MEDS: METFORMIN HCL 500MG TABLET PO SCH ×2 (06:45→17:36)
[2021-01-01] MEDS: INSULIN LISPRO 100 UNITS/ML SUBCUT SCH ×4 (07:10→21:00)
[2021-01-01 08:00] VITALS: BP 118/67
[2021-01-01] MEDS: GABAPENTIN 300MG CAPSULE PO SCH ×2 (09:01→21:00)
[2021-01-01] MEDS: ALLOPURINOL 100 MG TABLET PO SCH (09:01)
[2021-01-01] MEDS: DOCUSATE SODIUM 100MG CAPSULE PO SCH ×2 (09:01→17:36)
[2021-01-01] MEDS: FUROSEMIDE 40MG/4ML VIAL IVP SCH (09:01)
[2021-01-01] MEDS: ENOXAPARIN 150MG/ML SYR SUBCUT SCH ×2 (09:02→21:00)
[2021-01-01 16:30] VITALS: BP 126/71
[2021-01-01 20:00] VITALS: BP 143/82
[2021-01-02 04:00] VITALS: BP 99/55
[2021-01-02] MEDS: FERROUS SULFATE 325MG TABLET PO SCH ×2 (07:09→12:10)
[2021-01-02] MEDS: METFORMIN HCL 500MG TABLET PO SCH (07:09)
[2021-01-02] MEDS: INSULIN LISPRO 100 UNITS/ML SUBCUT SCH ×2 (07:10→12:10)
[2021-01-02] MEDS: BLOOD SUGAR DIAGNOSTIC STRIP TEST SCH ×2 (07:35→11:40)
[2021-01-02 08:00] VITALS: BP 119/75
[2021-01-02] MEDS: FUROSEMIDE 40MG/4ML VIAL IVP SCH (09:00)
[2021-01-02] MEDS: ENOXAPARIN 150MG/ML SYR SUBCUT SCH (09:00)
[2021-01-02] MEDS: GABAPENTIN 300MG CAPSULE PO SCH (09:00)
[2021-01-02] MEDS: ALLOPURINOL 100 MG TABLET PO SCH (09:00)
[2021-01-02] MEDS: DOCUSATE SODIUM 100MG CAPSULE PO SCH (09:00)
[2021-01-02 12:00] VITALS: BP 112/63
[2021-01-02 13:17] VITALS: BP 112/63
== END 2021-01-02 14:07 | disposition home or self-care (01) | DRG 299 ==
LOC: ER 15:08 → 7EST 20:01 → ENRESERV 22:12
PROVIDERS: ADMIT Internal Medicine; ATTEND Internal Medicine
DX: I82.411 Acute embolism and thrombosis of right femoral vein (principal); L89.153 Pressure ulcer of sacral region, stage 3; I50.33 Acute on chronic diastolic (congestive) heart failure; E44.0 Moderate protein-calorie malnutrition; N17.9 Acute kidney failure, unspecified; I82.431 Acute embolism and thrombosis of right popliteal vein; I11.0 Hypertensive heart disease with heart failure; E66.01 Morbid (severe) obesity due to excess calories; E11.9 Type 2 diabetes mellitus without complications; M10.9 Gout, unspecified; I87.8 Other specified disorders of veins; I87.2 Venous insufficiency (chronic) (peripheral); D64.9 Anemia, unspecified; Z20.822 Contact with and (suspected) exposure to COVID-19; S31.010A Laceration without foreign body of lower back and pelvis without penetration into retroperitoneum, initial encounter; Z82.49 Family history of ischemic heart disease and other diseases of the circulatory system; Z83.3 Family history of diabetes mellitus; Z71.3 Dietary counseling and surveillance; Z91.19 Patient's noncompliance with other medical treatment and regimen; Z68.35 Body mass index [BMI] 35.0-35.9, adult; X58.XXXA Exposure to other specified factors, initial encounter; Y93.89 Activity, other specified; Y92.89 Other specified places as the place of occurrence of the external cause; Y99.8 Other external cause status
CPT/HCPCS: 36415; 71045; 80053; 81003; 82040; 82962; 83880; 84134; 84484; 85025; 87426; 93005; 93970; 97162; 99285; J1650; J1815; J1940; J2270; J2405; J2543; J3370